=== PATIENT | male | born 1950 | race Caucasian/White ===

== ENCOUNTER → 2016-09-12 12:40 | Day surgery (SDC) | payer MEDICARE ==
[~2016-09-12 12:40] MED LIST: Buffered Lidocaine 1% SYRIN* 3 ML/SYR SYRINGE INTRADERM ONE; Bupivacaine 0.5% W/EPI SDV* 30 ML VIAL ONE; Dexamethasone IV* 4 MG/ML 1 ML (4 MG) ONE; Flumazenil* 0.1 MG/ML 5 ML MDV ONE; Glycopyrrolate IV* 0.2 MG/ML 1 ML VIAL ONE; HYDROcodone/ACETAMIN 5-325 MG* 1 TAB PO PRN; Lidocaine 1% INJ* 10 MG/ML 30 ML SDV ONE; Midazolam* 1 MG/ML 5 ML VIAL (5 MG) ONE; Neostigmine Methylsulfate* 2 MG/2 ML SYRINGE ONE; Ondansetron INJ* 2 MG/ML VIAL IV PRN; Phenylephrine IV* 40 MCG/ML 10 ML SYRINGE ONE; Propofol* 10 MG/ML 20 ML BTL IV PUSH ONE; ceFAZolin 2 GM PREMIX(*) 2 GM/50 ML BAG IVPB ONE; fentaNYL* 50 MCG/ML 2 ML VIAL (100 MCG VIAL) ONE; oxyCODONE TAB* 5 MG TAB PO PRN
--- NOTE | 2016-09-12 16:02 | SURGPN ---
Brief Operative Note - Surgery Procedures: Procedures Pre-OP Diagnoses: umbilical hernia Post-op Diagnosis: same Procedure: open umbilical hernia repair with mesh Surgeon: Ankit Asst: Judith Manzanaresthesia: REBEKAH Waters EBL: minimal IVF: 1000cc LR Specimen: none Drains: none
[2016-09-12 18:00] VITALS: BP 110/61
--- NOTE | 2016-09-20 16:03 | OP ---
DATE OF OPERATION: 09/12/16 - [facility] DATE OF : 46 SURGEON: Aryan Pham MD BUSINESS APPLICATIONS ANALYST: ILYA Finch ANESTHESIOLOGIST: Dr. Yancey. ANESTHESIA: Local MAC. PRE-OP DIAGNOSIS: Umbilical hernia. POST-OP DIAGNOSIS: Umbilical hernia. OPERATIVE PROCEDURE: Open umbilical hernia repair with mesh. ESTIMATED BLOOD LOSS: Minimal. FLUIDS: 1 L of crystalloid fluid given. SPECIMEN: None. DRAINS: None. DESCRIPTION OF PROCEDURE: The patient was identified in the preoperative area, marked, brought to the operating room, placed on the operating table in the supine position. Preoperative antibiotics were given. Sequential devices were placed on bilateral lower extremities. Gentle sedation was given. The patient' s abdomen was prepped and draped in the standard surgical fashion and a time- out was performed. Curvilinear incision was made just below the umbilicus. This was dissected down to the anterior fascia superiorly and also laterally. The umbilical stalk was then isolated around a [place] drain and both sharp and blunt dissection was utilized to free the umbilical skin from the underlying hernia defect. Hernia defect was then appreciated, was approximately 2.5 cm. The edges were cleared off. Hemostasis achieved and a Bard medium-sized tribal mesh was utilized. This was placed into the preperitoneal space that had been cleared off and allowed to unfurl. It was sutured both inferiorly and superiorly with an 0 Polysorb suture. The edges were also sutured with 0 Polysorb suture to keep the mesh intact. The arms of the mesh were then cut and the defect was reapproximated with interrupted 0 Polysorb sutures. Hemostasis was achieved. Wound was then irrigated and umbilical skin was tacked down with 2-0 Polysorb suture, and the defect was closed with 3-0 Polysorb subcuticular sutures, followed by subcutaneous 4-0 Monocryl suture. Steri-Strips and sterile dressing were applied. The patient tolerated the procedure well, was woken up in the OR, and transferred to the PACU in stable condition. CC: [facility] * [id number]/[facility] #: [id number] MTDD
== END | disposition home or self-care (01) ==
LOC: OR 12:40
PROVIDERS: ATTEND Surgery
DX: K42.9 Umbilical hernia without obstruction or gangrene (principal); I10 Essential (primary) hypertension
CPT/HCPCS: C1781; J0690; J1100; J2001; J2250; J2704; J3010

== ENCOUNTER 2017-12-09 21:07 | Emergency (ER) | payer MEDICARE, BC ==
[2017-12-09 21:16] VITALS: BP 148/83
--- NOTE | 2017-12-09 21:51 | UC ---
Beckie Oshea Emily, scribed for Go Calhoun MD on 12/09/17 at 2137 . Back Pain HPI - HPI Summary HPI Summary: This patient is a 67 year old M presenting to [facility] accompanied by with a chief complaint of back pain that began yesterday night. The patient rates the pain 8/10 in severity. Symptoms aggravated by nothing. Symptoms alleviated by nothing. Patient reports LLQ abd pain (began 12/07/2017), increased weakness in the legs, and urinary urgency. Patient denies changes in appetite, bowel symptoms, dysuria, CP, and SOB. Allergies reviewed. Medications reviewed. - History of Current Complaint Chief Complaint: UCBackPain Stated Complaint: ABDOMINAL PAIN, AND BACK PAIN Time Seen by Provider: 12/09/17 21:30 Hx Obtained From: Patient Onset/Duration: Sudden Onset, Lasting Days, Still Present Timing: Constant Severity Initially: Severe Severity Currently: Severe Pain Intensity: 8 Pain Scale Used: 0-10 Numeric Character: Aching Aggravating Factor(s): Nothing Alleviating Factor(s): Nothing Associated Signs And Symptoms: Positive: Other - Positive LLQ abd pain (began ) and urinary urgency. Negative changes in appetite, bowel symptoms, dysuria, CP, and SOB - Allergies/Home Medications Allergies/Adverse Reactions: Allergies Allergy/AdvReac Type Severity Reaction Status Date / Time Adhesive Tape [Plastic Tape] Allergy SKIN Verified 12/09/17 21:18 REACTION SCOPE Allergy MOUTH SORES Uncoded 12/09/17 21:18 Home Medications: Home Medications Finasteride 12/09/17 [History] PMH/Surg Hx/FS Hx/Imm Hx Previously Healthy: No Cardiovascular History: Hypertension GI/ History: Other Other GI/ History: Negative kidney stones - Surgical History Surgical History: Yes Surgery Procedure, Year, and Place: [place] [facility] [place] [facility] [place] [facility] [place] [facility] [place] - Family History Known Family History: Positive: Other - Diverticulitis - Social History Occupation: Retired Lives: With Family Alcohol Use: None Substance Use Type: None Substance Use Comment - Amount & Last Used: was 6 cups coffee per day, down to 2 -3 now Smoking Status (MU): Former Smoker Type: Pipe Amount Used/How Often: occas pipe - 40 years ago Review of Systems Respiratory: Other - Negative SOB Cardiovascular: Other - Negative CP Gastrointestinal: Abdominal Pain, Other - Negative changes in appetie and bowel symptoms Genitourinary: Urgency, Other - Negative dysuria Musculoskeletal: Other: - Positive back pain Neurological: Weakness Is Patient Immunocompromised?: Yes All Other Systems Reviewed And Are Negative: Yes Physical Exam - Summary Physical Exam Summary: General: well-appearing, mild pain distress Skin: warm, color reflects adequate perfusion, dry Head: normal Eyes: EOMI, FLAVIO ENT: normal Neck: supple, nontender Respiratory: CTA, breath sounds present Cardiovascular: RRR Abdomen: soft, tender LLQ, tender to palpation in low back bilaterally Bowel: present Musculoskeletal: bilateral pedal edema, strength/ROM intact Neurological: sensory/motor intact, A&O x3 Psychological: affect/mood appropriate Triage Information Reviewed: Yes Vital Signs: Initial Vital Signs Temp 98.7 F 12/09/17 21:11 Pulse 80 12/09/17 21:11 Resp 16 12/09/17 21:11 BP 148/83 12/09/17 21:11 Pulse Ox 96 12/09/17 21:11 Vital Signs Reviewed: Yes Back Pain Course/Dx - Course Course Of Treatment: DISCUSSED NEED FOR IMMEDIATE EVALUATION IN THE EMERGENCY DEPARTMENT. PATIENT DECLINED AMBULANCE. - Differential Dx/Diagnosis Provider Diagnoses: LLQ ABDOMINAL PAIN. LOW BACK PAIN. B/L LEG WEAKNESS Discharge - Sign-Out/Discharge Documenting (check all that apply): Discharge/Admit/Transfer - Discharge Plan Condition: Stable Disposition: HOME Patient Education Materials: Acute Low Back Pain (ED), Weakness (ED), Abdominal Pain (ED) Referrals: Celina Marie MD [Primary Care Provider] - Additional Instructions: GO DIRECTLY TO THE EMERGENCY DEPARTMENT FOR FURTHER EVALUATION OF YOUR ABDOMINAL AND BACK PAIN AND LEG WEAKNESS. - Billing Disposition and Condition Condition: STABLE Disposition: Home The documentation as recorded by the Beckie zimmerman Emily accurately reflects the service I personally performed and the decisions made by me, Go Calhoun MD.
== END 2017-12-09 21:50 | disposition home or self-care (01) ==
LOC: UCEAST 21:07
DX: R10.32 Left lower quadrant pain (principal); M54.5 Low back pain; M62.81 Muscle weakness (generalized); I10 Essential (primary) hypertension; Z87.891 Personal history of nicotine dependence; Z91.09 Other allergy status, other than to drugs and biological substances
CPT/HCPCS: 99212; G0463

== ENCOUNTER 2017-12-09 22:02 | Inpatient (IN) | payer MEDICARE, BC ==
[2017-12-09] MEDS ORDERED: Ketorolac INJ* 30 MG/ML 1 ML VIAL IV PUSH ONE (22:33)
[2017-12-09] MEDS ORDERED: Morphine VIAL* 4 MG/ML VIAL (1 ml vial) IV ONE (22:34)
[2017-12-09] MEDS ORDERED: LORazepam INJ* 2 MG/ML 1 ML VIAL IV PUSH ONE (22:34)
[2017-12-09 23:09] LABS: Urine Appearance Clear; Urine Blood Negative (Negative); Urine Color Yellow; Urine Ketones Negative (Negative); Urine Protein Negative (Negative); Urine Specific Gravity 1.012 (1.010-1.030); Urine Urobilinogen Negative (Negative)
[2017-12-09 23:14] LABS: ABS Basophils 0.1 10^3/ul (0-0.2); ABS Eosinophils 0.3 10^3/ul (0-0.6); ABS Lymphocytes 1.1 10^3/ul (1.0-4.8); ABS Monocytes 0.7 10^3/ul (0-0.8); ABS Neutrophils 4.3 10^3/ul (1.5-7.7); ABS Nucleated RBC 0 10^3/ul; Eosinophil % 4.5 % (0-6); Hematocrit 36 % (42-52); Hemoglobin 12.3 g/dl (14.0-18.0); Lymphocyte % 17.4 % (25-47); Mean Corpuscular HGB Conc 34 g/dl (31-36); Mean Corpuscular Hemoglobin 32 pg (27-31); Mean Corpuscular Volume 93 fL (80-94); Mean Platelet Volume 10.1 um3 (7.4-10.4); Nucleated Red Blood Cells % 0.1; Platelet Count 173 10^3/ul (150-450); Red Blood Count 3.87 10^6/ul (4.00-5.40); Red Cell Distribution Width 14 % (10.5-15); White Blood Count 6.5 10^3/ul (3.5-10.8)
[2017-12-09 23:23] LABS: INR 0.94 (0.77-1.02)
[2017-12-09 23:30] LABS: EGFR Non-African American 56.7 (>60)
[2017-12-10] MEDS ORDERED: Dexamethasone IV* 4 MG/ML 1 ML (4 MG) IV SLOW PU ONE (00:08)
[2017-12-10] MEDS ORDERED: Acetaminophen TAB* 325 MG PO PRN (03:24)
[2017-12-10] MEDS ORDERED: Ondansetron INJ* 2 MG/ML VIAL IV PRN (03:24)
[2017-12-10] MEDS ORDERED: Aspirin EC TAB* 325 MG PO ONE (03:30)
--- NOTE | 2017-12-10 03:30 | ED ---
Marquez Oshea Jade, scribed for Maria Ines Carlson MD on 12/09/17 at 2235 . Back Pain - HPI Summary HPI Summary: Pt is a 67 y/o male sent [place] [facility] [place] who c/o flank pain. He states he started to have LLQ pain 2 days ago, which today moved to his left flank and became worse. The pain is rated an 8/10 in severity, and radiates to his left leg. Pt states it hurts to walk, and has not been able to walk normally and now walks staggered. He denies any injury prior to the pain. As per , the pt can barely move and has been sleeping more than usual. She also states his abdomen is normally distended. Pt states his legs have been numb for a few weeks, and saw his doctor for this symptom. He denies any urinary symptoms, and had a normal BM this morning. Pt took Oxycodone [employer]. - History of Current Complaint Chief Complaint: EDFlankPain Stated Complaint: LOWER BACK PAIN Time Seen by Provider: 12/09/17 22:13 Hx Obtained From: Patient, Family/Admitting Interviewer - Onset/Duration: Gradual Onset, Lasting Days - 2, Worse Since Timing: Constant Back Pain Location: Is Discrete @ - Left flank, Radiates To - left leg Severity Currently: Severe Pain Intensity: 8 Pain Scale Used: 0-10 Numeric Aggravating Symptom(s): Walking Alleviating Symptom(s): Nothing Associated Signs And Symptoms: Positive: Numbness - Legs, Abdominal Pain - LLQ, Flank Pain - Left. Negative: Bladder Incontinence, Bowel Incontinence - Allergies/Home Medications Allergies/Adverse Reactions: Allergies Allergy/AdvReac Type Severity Reaction Status Date / Time Adhesive Tape [Plastic Tape] AdvReac SKIN Verified 12/09/17 22:09 REACTION SCOPE AdvReac MOUTH SORES Uncoded 12/09/17 22:09 Home Medications: Home Medications Finasteride [Proscar] 5 mg PO DAILY 12/09/17 [History Confirmed 12/09/17] Multivitamins/Minerals TAB* [Theragran/minerals TAB*] 1 tab PO DAILY 12/09/17 [ History Confirmed 12/09/17] PMH/Surg Hx/FS Hx/Imm Hx Cardiovascular History: Reports: Hx Hypertension GI History: Reports: Hx Gastroesophageal Reflux Disease - controlled with med, Other GI Disorders - Hernia History: Reports: Other Problems/Disorders - enlarged prostate Musculoskeletal History: Reports: Other Musculoskeletal History - bilateral hip/ kNee pain - hasn't seen a md Sensory History: Reports: Hx Cataracts - right eye only Denies: Hx Contacts or Glasses Opthamlomology History: Reports: Hx Cataracts - right eye only Denies: Hx Contacts or Glasses - Surgical History Surgery Procedure, Year, and Place: right [place] surgery [place], [facility] [place]. [place] retina - 2014, [place]. [place] surgery, 2006 - [facility] [place]. [place] inguinal [place] repair , 2002 - [facility] [place], [place] [facility] [place] Hx Anesthesia Reactions: No Infectious Disease History: No Infectious Disease History: Denies: Traveled Outside the [place] in Last 30 Days - Family History Known Family History: Positive: Other - Diverticulitis - Social History Alcohol Use: None Substance Use Type: Reports: None Substance Use Comment - Amount & Last Used: was 6 cups coffee per day, down to 2 -3 now Smoking Status (MU): Former Smoker Type: Pipe Amount Used/How Often: occas pipe - 40 years ago Review of Systems Positive: Abdominal Pain - LLQ Positive: flank pain - Left. Negative: dysuria, frequency, hematuria, urgency Positive: Numbness - Leg All Other Systems Reviewed And Are Negative: Yes Physical Exam - Summary Physical Exam Summary: VITAL SIGNS: Reviewed. GENERAL: Patient is a well-developed and nourished MALE who is lying comfortable in the stretcher. Patient is not in any acute respiratory distress. Staggering unsteady gait. HEAD AND FACE: No signs of trauma. No ecchymosis, hematomas or skull depressions. No sinus tenderness. EYES: PERRLA, EOMI x 2, No injected conjunctiva, no nystagmus. EARS: Hearing grossly intact. Ear canals and tympanic membranes are within normal limits. MOUTH: Oropharynx within normal limits. NECK: Supple, trachea is midline, no adenopathy, no JVD, no carotid bruit, no c- spine tenderness, neck with full ROM. CHEST: Symmetric, no tenderness at palpation LUNGS: Clear to auscultation bilaterally. No wheezing or crackles. CVS: Regular rate and rhythm, S1 and S2 present, no murmurs or gallops appreciated. ABDOMEN: Soft, non-tender. No rebound no guarding, and no masses palpated. Bowel sounds are hypoactive. Distention. Tenderness over LS spine. EXTREMITIES: FROM in all major joints, no edema, no cyanosis or clubbing. NEURO: Alert and oriented x 3. No acute neurological deficits. Speech is normal and follows commands. SKIN: Dry and warm : PVR is 0 Triage Information Reviewed: Yes Vital Signs On Initial Exam: Initial Vitals Temp Pulse Resp BP Pulse Ox 98.4 F 87 18 160/74 96 12/09/17 22:05 12/09/17 22:05 12/09/17 22:05 12/09/17 22:05 12/09/17 22:05 Vital Signs Reviewed: Yes Diagnostics - Vital Signs Vital Signs Temp Pulse Resp BP Pulse Ox 12/09/17 22:05 98.4 F 87 18 160/74 96 - Laboratory Result Diagrams: 12/09/17 22:59 12/09/17 22:59 Lab Statement: Any lab studies that have been ordered have been reviewed, and results considered in the medical decision making process. - CT Lumbar Spine CT CT Interpretation: Positive (See Comments) - 11:44 Small to moderate sized L3/4 disc bulge without significant mass effect. Mild bilateral neural foraminal narrowing L4/5 secondary to facet joitn arthrosis and geometric distortion from a degenerative retrolisthesis. 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 ED physician has reviewed this imaging report. CT Interpretation Completed By: Radiologist Brain CT CT Interpretation: No Acute Changes - 12:50 No evidence of acute pathology. ED physician has reviewed this imaging report. CT Interpretation Completed By: Radiologist Re-Evaluation - Re-Evaluation First Eval Re-Evaluation Time: 01:00 Comment: Tried to walk patient. He still had unsteady gait, almost falling. Second Eval Re-Evaluation Time: 02:00 Comment: Discussed results with pt's . Back Pain Course/Dx - Course Course Of Treatment: Pt is a 67 y/o male c/o LLQ pain and left flank pain radiating to his left leg for 2 days. Pt states it hurts to walk, and has been walking staggered. He denies any injury prior to the pain. Pt states his legs have been numb for a few weeks. A physical exam revealed staggering unsteady gait, bowel sounds are hypoactive, distention, tenderness over LS spine, and PVR is 0. A lumbar spine CT revealed Small to moderate sized L3/4 disc bulge without significant mass effect. Mild bilateral neural foraminal narrowing L4/5 secondary to facet joitn arthrosis and geometric distortion from a degenerative retrolisthesis. 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 A brain CT revealed no pathology. At 1:00, the pt still had unsteady gait, almost falling over. At 1:50 Dr. Marie accepts the pt for admission. Final dx are unsteady gait and back pain. Pt is agreeable with this plan. - Diagnoses Provider Diagnoses: Unsteady gait, Back pain - Provider Notifications Discussed Care Of Patient With: Beny Marie Time Discussed With Above Provider: 01:50 Instructed by Provider To: Admit As Inpatient - Dr. Marie accepts pt for admission for unsteady gait. Discharge - Sign-Out/Discharge Documenting (check all that apply): Discharge/Admit/Transfer - Admit, Sign-Out Patient Signing out patient TO: Beny Marie - Discharge Plan Condition: Stable Disposition: ADMITTED TO [facility] Referrals: Celina Marie MD [Primary Care Provider] - The documentation as recorded by the Marquez zimmerman Jade accurately reflects the service I personally performed and the decisions made by Aldo duenas Abdul, MD.
[2017-12-10] MEDS ORDERED: oxyCODONE TAB* 5 MG TAB PO PRN (03:31)
--- NOTE | 2017-12-10 05:58 | HP ---
CC: Celina Marie MD* ADMISSION HISTORY AND PHYSICAL: DATE OF ADMISSION: 12/09/17 PRIMARY CARE PROVIDER: Celina Marie MD HEALTHCARE PROXY: His . CODE STATUS: Full. SOURCE OF INFORMATION: History obtained from interview with the patient and his . RELIABILITY: Fair. The patient is a relatively poor historian when it comes to recalling the dates. CHIEF COMPLAINT: Difficulty walking and lower back pain. HISTORY OF PRESENT ILLNESS: This is a 67-year-old man with past medical history of hypertension. He has been in his usual state of health for approximately 3 days prior. He drove his grandchildren to the park at [place] and when he got out of the car, he felt like his legs were rubber and he could not control them. He was out for most of the day; however, he notes that because of the difficulty walking, he stumbled between different benches and sat most of the day and returned to the car and remained in the car. He notes that he was tripping over his feet and could not control his legs but did not note any pain at that time. The next day, he noticed some pain in his left lower belly that is described as burning, but no nausea or vomiting. The following day, again he went out to an event; however, after getting there struggled with walking again with "staggering, holding on to things" and so he and his left and returned home. Today, because of continued ataxia and the development of lower back pain, they decided to seek care in the emergency room. He notes lower back pain that is described as burning and "hurts." He has had back pain in the past, but he notes it usually resolves on its own. He does not have chronic lower back pain and this is new and unusual for him. He has not had any urinary incontinence or urinary retention; however, did have 1 episode of fecal incontinence where he had eaten something greasy and could not make it to the bathroom in time. He is unable to tell me if this episode of fecal incontinence preceded any of his ataxia. He denies any cough or sore throat, nausea, vomiting, lightheadedness, chest pain, shortness of breath. He had no blurry vision or diplopia, headache, fevers, chills, or sick contacts. He has had no injuries to his back or other regions. Denies any paresthesias particularly in his lower extremities, although does feel like his legs has somebody squeezing on them. PAST MEDICAL HISTORY: Includes hypertension, GERD, umbilical hernia repair with mesh, prostatectomy, bilateral inguinal hernia, cataract surgery, retinal detachment, right hand surgery, and tonsillectomy at age 4. MEDICATIONS: Per recall, no list available. 1. Amlodipine 10. 2. Omeprazole 20 daily. ALLERGIES: ADHESIVE TAPE. SOCIAL HISTORY: Remote tobacco with a pipe. 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 He has about 1 alcoholic drink per month. Lives with his . FAMILY HISTORY: His mother had a CVA. His brother had hypertension, diabetes. REVIEW OF SYSTEMS: As per HPI. Otherwise, all other systems negative. PHYSICAL EXAMINATION GENERAL: A 67-year-old gentleman, interactive, pleasant, no apparent distress. VITALS: In the emergency room, 144/74, heart rate 80, respiratory rate is 16, T - max in the emergency room is 98.4, he is 98% on room air. HEENT: His oropharynx is clear. He has moist mucous membranes. Sclerae are anicteric. NECK: He has no cervical or supraclavicular lymphadenopathy. LUNGS: Clear to auscultation. HEART: He has regular rate and rhythm. ABDOMEN: His abdomen seems distended and he has some tenderness in the left lower quadrant without rebound or guarding. He has no edema. BACK: Symmetric. Tenderness to palpation around L5-S1. EXTREMITIES: Warm and well perfused. NEUROLOGIC: He is alert and oriented x3. His cranial nerves II through XII are intact, but he does have some upward rotary nystagmus. His sensation in upper and lower extremities are intact and equal to light touch and pinprick. No vibration was applied. He has 5/5 strength throughout. He is able to hold bilateral legs up for 10 full seconds. No apparent drift. Slow, but equal rapid alternating movements. Visual lozoya are intact to confrontation. Potentially some neglect when testing his right eye upper lateral quadrant; however, was able to perform better on several attempts. His reflexes are hyper at his patellas. Unable to elicit ankle jerks. On standing, the patient immediately fall straight backwards and on to the stretcher, unable to stand unassisted or test his gait. He has no apparent anxiety, agitation, or depression. LABORATORY DATA: His labs are reviewed, largely normal. Hemoglobin 12.3, MCV is 93. INR is 0.9. His creatinine is 0.16. CRP is 11.5. His urine is bland. IMAGING: Data reviewed. Brain CT overnight read is without abnormality and then lumbar spine MRI similarly overnight read without abnormality. Official reads are pending. ASSESSMENT AND PLAN: This is a 67-year-old man, limited medical history including hypertension and gastroesophageal reflux disease, presented to the hospital with sudden onset ataxia and new onset lower back pain. 1. Ataxia, sudden onset, developed en route to driving to a park and has been stable. It is unclear if this is anything to do with his lower back pain. He has no lower extremity paresthesias, weakness and his reflexes are hyperdynamic. In addition, he has upward rotary nystagmus. Checking an MRI of the brain to evaluate for brain of stroke. If this is negative, we would pursue additional imaging of the lumbosacral region. His pain is particularly tender around L5-S1. Additionally, add on B12. Give the patient aspirin 325 tonight. Add on hemoglobin A1c. Place on telemetry to continue to monitor, evaluate for stroke workup. Remainder of stroke workup include transthoracic echocardiogram and evaluation of his carotids pending results of MRI as well as Neurology consultation. I did discuss with Dr. Gutierrez overnight and place consultation. 2. Lower back pain. Certainly, concerning given location as well as new onset of symptoms. Treat pain symptomatically overnight. Further evaluation depending on MRI tomorrow. 3. Abdominal pain. Tender in the left lower quadrant, not associated with other signs including nausea, vomiting, constipation, diarrhea. No evidence of infection. We will check plain film. Potentially constipation is contributing. 4. Hypertension. Continue home medications. 5. Gastroesophageal reflux disease. Continue omeprazole. 6. DVT prophylaxis. SCDs until stroke ruled out. [id number]/[facility] #: [id number] [facility]
--- NOTE | 2017-12-10 07:25 | RAD ---
INDICATION: Low back pain with radiculopathy. COMPARISON: Comparison is made with a prior MRI of the lumbar spine from July 19, 2011 and a prior x-ray study of the lumbar spine from January 05, 2013. TECHNIQUE: Contiguous axial sections were obtained beginning above the L1 vertebra and continuing through the L5-S1 disc space. Images were reconstructed in the sagittal and coronal planes. FINDINGS: There is a mild lumbar scoliosis convex toward the left side. There is mild grade 1 retrolisthesis at the L4-L5 level and mild grade 1 anterolisthesis at the L5-S1 level. There is unilateral spondylolysis on the left side at the L5 level. No other fractures are seen. At the T12-L1 level there is a mild broad-based disc bulge. No significant spinal canal or neural foraminal narrowing is seen. At the L1-L2 level there is no evidence for spinal canal or neural foraminal narrowing. At the L2-L3 level there is a minimal broad-based disc bulge. No significant spinal canal or neural foraminal narrowing is seen. At the L3-L4 level there is a gece-hq-kwzwtoac broad-based disc bulge and mild hypertrophic changes within the facet joints. There is mild spinal canal narrowing and mild bilateral neural foraminal narrowing. At the L4-L5 level there is a minimal broad-based disc bulge. There are mild hypertrophic changes within the facet joints. No significant spinal canal or neural foraminal narrowing is seen. The L5-S1 level there is a minimal broad-based disc bulge and mild hypertrophic changes within the facet joints. No significant spinal canal or neural foraminal narrowing is seen. Incidental note is made of bilateral peripelvic renal cysts. IMPRESSION: 1. MILD GRADE 1 ANTERIOR SPONDYLOLISTHESIS AT THE L5-S1 LEVEL AND LEFT-SIDED UNILATERAL SPONDYLOLYSIS AT THE L5 LEVEL. 2. MILD DEGENERATIVE DISC DISEASE AND FACET OSTEOARTHRITIS DESCRIBED WITH CHANGES MOST PROMINENT AT THE L3-L4 LEVEL. AT THAT LEVEL THERE IS MILD SPINAL CANAL NARROWING AND MILD BILATERAL NEURAL FORAMINAL NARROWING.
--- NOTE | 2017-12-10 07:32 | RAD ---
INDICATION: Left lower quadrant pain COMPARISON: None TECHNIQUE: A single view of the abdomen is submitted. FINDINGS: Bones: There are no acute bony findings. Soft tissues: The soft tissues appear normal. The psoas margins are sharp. Bowel gas pattern: There is a large amount retained stool. Calcifications: There are no abnormal calcifications. Other: None IMPRESSION: RETAINED STOOL.
--- NOTE | 2017-12-10 07:36 | RAD ---
INDICATION: CVA. COMPARISON: Comparison is made with a prior CT of the brain from January 04, 2013. TECHNIQUE: Contiguous axial sections of the brain were obtained from the skull base to the vertex without contrast. FINDINGS: The ventricles, cisterns and sulci are enlarged consistent with diffuse atrophy. There are multiple focal areas of decreased density in the subcortical and periventricular white matter suggestive of moderate chronic small vessel ischemic changes. No mass effect is seen. There is no evidence for hemorrhage. There is dolichoectasia of the basilar artery. No significant focal osseous abnormality is seen. The visualized portion of the paranasal sinuses and mastoid air cells appear clear. IMPRESSION: 1. NO EVIDENCE FOR GROSS ACUTE INFARCT, MASS EFFECT OR HEMORRHAGE. 2. ATROPHY AND FINDINGS MOST CONSISTENT WITH CHRONIC SMALL VESSEL SCHEMA CHANGES.
[2017-12-10] MEDS ORDERED: Magnesium Hydroxide LIQ* 30 ML UDC PO ONE (08:33)
[2017-12-10] MEDS: Docusate CAP* 100 MG PO SCH ×2 (09:41→21:09)
[2017-12-10] MEDS: Lidocaine PATCH 5%* 1 PATCH TRANSDERM SCH (09:41)
[2017-12-10] MEDS: Multivitamins/Minerals TAB PO SCH (09:41)
[2017-12-10] MEDS: Finasteride TAB* 5 MG PO SCH (09:41)
[2017-12-10] MEDS: amLODIPine TAB* 5 MG PO SCH (09:42)
[2017-12-10] MEDS: Omeprazole CAP* 20 MG PO SCH (09:48)
--- NOTE | 2017-12-10 10:19 | RAD ---
HISTORY: MRI clearance. COMPARISON: None. FINDINGS: Frontal and lateral views of the orbits. There is no radiopaque foreign body attributable to the orbits. The orbital rims are intact. The sinuses are clear. The zygomatic arches are normal. IMPRESSION: No radiopaque foreign body attributable to the orbits.
--- NOTE | 2017-12-10 11:00 | RAD ---
HISTORY: new ataxia, attn to brainstem cva COMPARISONS: January 05, 2013 TECHNIQUE: The following sequences were obtained of the head: Sagittal T1-weighted images, axial T2-weighted images, axial FLAIR images, axial susceptibility weighted images, axial T1-weighted images. Additionally, axial diffusion-weighted images were obtained with calculated apparent diffusion coefficients. FINDINGS: The study is limited by patient motion artifact. HEMORRHAGE/INFARCT: There is a small focus of restricted diffusion within the right posterior frontal pollack radiata on axial image 19. Elsewhere, there is no hemorrhage or acute infarct. MASSES/SHIFT: There is no mass or shift. EXTRA-AXIAL SPACES/MENINGES: There are no extra-axial fluid collections. SULCI AND VENTRICLES: There is diffuse and proportional enlargement of the sulci and ventricles. CEREBRUM: There is multifocal elevated T2/FLAIR signal in the periventricular and subcortical white matter. BRAINSTEM: There is elevated T2/FLAIR signal within the pontine white matter. CEREBELLUM: There are no focal parenchymal abnormalities. The cerebellar tonsils are normal in size and position. SELLA: The sella is normal. PINEAL: The pineal region is clear. CP ANGLE/TEMPORAL BONES: The labyrinthine structures are grossly normal. VESSELS: Normal flow-voids are noted within the visualized vertebral vasculature. DIFFUSION ABNORMALITIES: As noted above, there is a small focus of acute diffusion within the right posterior frontal pollack radiata measuring 0.5 cm. PARANASAL SINUSES/MASTOIDS: There are mucus retention cysts within the maxillary sinuses bilaterally. ORBITS: The orbits are unremarkable. BONES AND SOFT TISSUE: No bone or soft tissue abnormalities are noted. OTHER: None IMPRESSION: 1. SMALL FOCUS OF RESTRICTED DIFFUSION WITHIN THE RIGHT POSTERIOR FRONTAL POLLACK RADIATA CONSISTENT WITH SUBACUTE NONHEMORRHAGIC INFARCT. 2. DIFFUSE INVOLUTIONAL CHANGE WITH ELEVATED T2/FLAIR SIGNAL IN THE PERIVENTRICULAR, SUBCORTICAL, AND PONTINE WHITE MATTER, MOST SUGGESTIVE OF CHRONIC SMALL VESSEL ISCHEMIC CHANGE.
[2017-12-10] MEDS ORDERED: Iodixanol* (CONTRAST) 320 MG/ML 100 ML SDV IV ONE (12:15)
--- NOTE | 2017-12-10 13:10 | RAD ---
HISTORY: r/o stenosis, CVA COMPARISONS: MRI of the brain dated December 10, 2017 TECHNIQUE: Multiple contiguous axial CT scans were obtained of the head and neck after the administration of nonionic intravenous contrast timed to the systemic arterial phase of contrast enhancement. Coronal and sagittal multiplanar reformations are submitted for review. Multiple 3-D maximum intensity projection reconstructions are also submitted for review. FINDINGS: CTA NECK: AORTIC ARCH: There is a normal three-vessel branching pattern of the aortic arch. There is no ostial or proximal stenosis of the cephalic great vessels. RIGHT VERTEBRAL ARTERY: The right vertebral artery is patent along its course, without stenosis. LEFT VERTEBRAL ARTERY: The left vertebral artery is patent along its course, without stenosis. DOMINANCE: The left vertebral artery is dominant. RIGHT COMMON CAROTID ARTERY: The right common carotid artery is patent. The right carotid bifurcation occurs at C3-C4 RIGHT INTERNAL CAROTID ARTERY: There is no right internal carotid artery stenosis by NASCET criteria. The right internal carotid artery is tortuous. RIGHT EXTERNAL CAROTID ARTERY: The right external carotid artery is unremarkable. LEFT COMMON CAROTID ARTERY: The left common carotid artery is patent. The left carotid bifurcation occurs at C2-C3 LEFT INTERNAL CAROTID ARTERY: There is no left internal carotid artery stenosis by NASCET criteria. The left internal carotid artery is tortuous. LEFT EXTERNAL CAROTID ARTERY: The left external carotid artery is unremarkable. VENOUS CIRCULATION: The venous system is unremarkable. SALIVARY GLANDS: The parotid glands, submandibular glands, sublingual glands are normal. NASAL CAVITY/NASOPHARYNX: The nasal cavity and nasopharynx are normal. ORAL CAVITY/OROPHARYNX: The oral cavity is obscured by streak artifact from dental amalgam. The visualized oral cavity and oropharynx are unremarkable. LARYNGEAL APPARATUS/HYPOPHARYNX: The laryngeal apparatus and hypopharynx are normal. UPPER AIRWAY/UPPER ESOPHAGUS: The visualized upper airway and esophagus are normal. LUNG APICES: The lung apices are clear. THYROID GLAND: The thyroid gland is normal. LYMPH NODES: There is no lymphadenopathy by size criteria. BONES AND SOFT TISSUES: No bone or soft tissue abnormalities are noted. CTA HEAD: INTRACRANIAL CIRCULATION: There is no aneurysm, vascular malformation, occlusion, or stenosis of the visualized intracranial circulation. The anterior communicating artery complex is clear. Bilateral posterior communicating arteries are identified. VENOUS CIRCULATION: The venous system is unremarkable. PERFUSION: There is no obvious parenchymal perfusion deficit. HEMORRHAGE/INFARCT: There is no hemorrhage or acute infarct. MASSES/SHIFT: There is no mass or shift. EXTRA-AXIAL SPACES: There are no extra-axial fluid collections. SULCI AND VENTRICLES: The sulci and ventricles are normal in size and position for the patient's stated age. CEREBRUM: There are no focal parenchymal abnormalities. BRAINSTEM: There are no focal parenchymal abnormalities. CEREBELLUM: There are no focal parenchymal abnormalities. PARANASAL SINUSES: There are mucus retention cysts of the maxillary sinuses bilaterally. ORBITS: The orbits are unremarkable. BONES AND SOFT TISSUE: No bone or soft tissue abnormalities are noted. OTHER: There is no abnormal enhancement. IMPRESSION: 1. NO ANEURYSM, VASCULAR MALFORMATION, OCCLUSION, OR STENOSIS OF THE VISUALIZED INTRACRANIAL CIRCULATION.. 2. NO INTERNAL CAROTID ARTERY STENOSIS BY NASCET CRITERIA. CPT II Codes: 3100F
[2017-12-10] MEDS: Aspirin EC TAB* 81 MG TAB.EC PO SCH (13:50)
--- NOTE | 2017-12-10 15:08 | CONS ---
CC: Dr. Celina Marie NEUROLOGY CONSULTATION: DATE OF CONSULT: 12/10/17. LOCATION: He is an inpatient, in room 451. REFERRING PHYSICIAN: Dr. Marie. CHIEF COMPLAINT: Difficulty walking. HISTORY OF PRESENT ILLNESS: Anton Aquino is a 67-year-old man, who presented to the hospital yesterday because of progressive difficulty walking. In speaking with his and daughter, who are present, it has been gradually progressive process for at least many weeks if not quite a few months. He has been getting stiffer and stiffer, and more unsteady on his feet. He trips and has not hit the ground , but he has to hold onto things. He notes his legs are very stiff. He occasionally gets some numbn ess in his feet. He does not feel any problems of numbness, weakness or coordination of his upper ex tremities. He feels that both of his legs are weak. There is no history of head or neck trauma, or neck pain, but he does have back pain. He has noticed any difficulty with speech or swallowing, and his has not noticed any change in his voice. He denies problems with vision other than chronic ones. No double vision. He was evaluated by Dr. Marie in the emergency room and noted to have some nystagmus. He was noted to be unstable on his feet and tended to fall backwards. PAST MEDICAL HISTORY: Notable for hypertension and gastroesophageal reflux. He states he takes his antihypertensive medication regularly. He has a history of retinal detachment and cataract surgeries . He has had a prostatectomy and inguinal hernia repairs. MEDICATIONS: At home consist of: 1. Amlodipine 10 mg p.o. daily. 2. Omeprazole 20 mg p.o. daily. Medications received here in the hospital include: 1. Colace 100 mg p.o. b.i.d. 2. Proscar 5 mg p.o. daily. 3. Ondansetron 4 mg IV q. 4 hours as needed for nausea. 4. Oxycodone 5 mg p.o. q. 6 hours p.r.n. back pain. ALLERGIES: He is allergic to ADHESIVE TAPE. FAMILY HISTORY: Noncontributory. REVIEW OF SYSTEMS: Notable for one fall off of the ladder quite a few years ago. He was probably kno cked out as he came to on the ground. He was alone, so he is not sure how long he was out for. That is the only history of head injury. There is no history of prior strokes or seizures. There is no history of diabetes or heart disease. There has been no change in weight. There had been no recent fevers or infections. The rest of the 14-point review of systems is unremarkable. PHYSICAL EXAM: He is well hydrated and has central obesity. Vital Signs: Temperature 98.4, blood pr essure most recently 133/73, heart rate is in the 80s and regular. Respiratory rate is 16 and oxygen saturations 96% on room air. Heart is in a regular rate and rhythm without murmurs. Carotid pulses are present. There are no cervical or supraclavicular bruits. Lungs are clear bilaterally. Neurological Exam: Pupils react equally from 3.5 to 2.5 mm. Eye movements are choppy, but I do not see any nystagmus. There is no ophthalmoplegia or ptosis. Funduscopic exam is unremarkable bilateral ly. Visual lozoya are full to confrontation. Facial musculature is intact and symmetric, and facial sensation to pin and light touch is also intact and symmetric. Palate and tongue are normal. Speech is soft, but clear. Hearing is intact. Neck strength is intact. Motor exam reveals spasticity in both legs and to a lesser extent in the arms. He has good strength proximally and distally in upper and lower extremities, however. Sensory exam is intact to vibration, light touch, proprioception, and pin discrimination in upper and lower extremities proximally and distally. There is no rest tremor. [id number]-mz-[id number] maneuvers are s low, but accurate. Finger taps are normal in the hands. [id number] maneuver is limited by limited range of motion. Gait is stiff-legged and somewhat spastic. He is able to ambulate independently. Reflexes are diffusely brisk in the upper extremities including the biceps and finger flexors. Knee jerks are very brisk, but there are no crossed adductor responses. Ankle reflexes are grade 2, but I did get a couple of beats of clonus at the right ankle. Plantar responses are flexor. He is alert and oriented, and a reasonably good historian. Memory seems fair and language is fluent. He has adequate attention, concentration, and fund of knowledge. DIAGNOSTIC STUDIES/LAB DATA: Laboratory data includes an MRI of the brain done earlier today. I rev iewed the images and there is a small subacute infarction in the right deep white matter. There was also reasonably extensive chronic ischemic changes in the deep white matter and also in the lissy. He has a very tortious appearing basilar artery. Brain CT interpreted as showing hypodensities consist ent with chronic ischemic changes. CT of the lumbar spine interpreted showing degenerative changes i n grade 1 anterior spondylolisthesis of L5 on S1. Other laboratory data are notable for a CBC with a hemoglobin of 12.3 and otherwise unremarkable CBC. PTT and INR are normal. Chemistry profile notable for a nonfasting glucose of 156 yesterday, hemog lobin A1c 5.6%. Creatinine is 1.26. CRP mildly elevated, 11.5. Cholesterol 187, LDL 82. Vitamin B 12 level of 375. IMPRESSION AND PLAN: The impression is that of a spastic paraplegia. There was also a tiny subacute infarct in the right deep frontal white matter. His spasticity may be from subcortical chronic isch emic disease, but he needs an MR imaging of his cervical spine and possible a thoracic spine if that is negative. There is a CT angiogram of his neck and brain pending. He has a pretty tortuous looking basilar artery it is possible it is causing some brainstem compression or ischemia. He has been sta rted on aspirin therapy, which I recommended be continued and I also recommended that he would be sta rted on a high potency statin. His blood pressure is currently adequately controlled. He does not a ppear to have diabetes. He is a nonsmoker. I put in the order for the MRI of the cervical spine and we will await the CT angiogram results. I m ay add Plavix, but I would like the other studies first. I will follow him along with you. [id number]/[facility] #: [id number]
--- NOTE | 2017-12-10 15:41 | PN ---
Subjective Date of Service: 12/10/17 Interval History: Pt is rather withdrawn and appear to be slow to respond to questioning, but per family present in the room, it's pt's baseline . C/o falls and gait problems for several months, more in the past 2 days Had LLQ abd pain and lumbar back pain that resolved by today. denies constipation Objective Active Medications: Acetaminophen (Tylenol Tab*) 650 mg PO Q6H PRN PRN Reason: PAIN Amlodipine Besylate (Norvasc Tab*) 10 mg PO QAM [facility] Last Admin: 12/10/17 09:42 Dose: 10 mg Aspirin (Aspirin Ec Tab*) 81 mg PO DAILY [facility] Last Admin: 12/10/17 13:50 Dose: 81 mg Atorvastatin Calcium (Lipitor*) 80 mg PO 1700 [facility] Docusate Sodium (Colace Cap*) 100 mg PO BID [facility] Last Admin: 12/10/17 09:41 Dose: 100 mg Finasteride (Proscar Tab*) 5 mg PO DAILY [facility] Last Admin: 12/10/17 09:41 Dose: 5 mg Lidocaine (Lidoderm 5% Patch*) 1 patch TRANSDERM DAILY [facility] Last Admin: 12/10/17 09:41 Dose: 1 patch Multivitamins/Minerals (Theragran/Minerals Tab*) 1 tab PO DAILY [facility] Last Admin: 12/10/17 09:41 Dose: 1 tab Omeprazole (Prilosec Cap*) 20 mg PO QAM@0730 [facility] Last Admin: 12/10/17 09:48 Dose: 20 mg Ondansetron HCl (Zofran Inj*) 4 mg IV Q4H PRN PRN Reason: NAUSEA Oxycodone HCl (Roxycodone Tab*) 5 mg PO Q6H PRN PRN Reason: SEVERE PAIN Pharmacy Profile Note (Lidocaine Patch Remove*) 1 note N/A 2100 [facility] Vital Signs - 8 hr 12/10/17 12/10/17 08:33 11:56 Temperature 98.4 F 98.2 F Pulse Rate 83 95 Respiratory 16 16 Rate Blood Pressure 133/73 143/72 (mmHg) O2 Sat by Pulse 96 95 Oximetry Oxygen Devices in Use Now: None Appearance: 67 yo M in nAD, aAOx3, poor historian, does not remeber the president Eyes: No Scleral Icterus, PERRLA Ears/Nose/Mouth/Throat: NL Teeth, Lips, Gums, Mucous Membranes Moist Neck: NL Appearance and Movements; NL JVP, Trachea Midline Respiratory: Symmetrical Chest Expansion and Respiratory Effort, Clear to Auscultation Cardiovascular: NL Sounds; No Murmurs; No JVD, RRR Abdominal: NL Sounds; No Tenderness; No Distention Extremities: No Edema, No Clubbing, Cyanosis Skin: No Rash or Ulcers, No Nodules or Sclerosis Neurological: - - ataxia and increased spasticity in b/l LE's. finger to nose mildly dysmetric b/l Result Diagrams: 12/09/17 22:59 12/09/17 22:59 Assess/Plan/Problems-Billing Assessment:67 yo M with h/o TURP, HTN presents with ataxia - Patient Problems (1) Ischemic cerebrovascular accident (CVA) Comment: MRI positive for r posterior pollack radiata CVA Cont neurochecks and telem D/w Dr. Gutierrez ASA/Lipitor started Echo pending . CTa head an neck shows no significant stenosis. PT/OT ongoing (2) Dyslipidemia Comment: LDL 82, lipitor started (3) HTN (hypertension) Comment: controlled on Norvasc (4) Abdominal pain Comment: resolved, possibly due to constipation Abd XRay shows retained stool (5) DVT prophylaxis Comment: HSQ Status and Disposition: inpatient
--- NOTE | 2017-12-10 16:10 | ECHO ---
Patient: JOSE BRAXTON [facility] Rec#: [id number] : 1950 Date: 12/10/2017 Age: 67y Height: 152 cm / 59.8 in Weight: 74 kg / 163.1 lbs Sex: M BSA: 1.71 Room#: [facility] Admit Date#: 12/10/2017 Type: Inpatient Referring: Melia Wheeler MD Reading: Luisito Bagley MD Engineer Technician: Vicki Mercedes RDCS,RDMS CC: Celina Marie Transthoracic Echocardiogram Indication: CVA BP: 133/73 HR: 97 Rhythm: NSR Findings History: HTN Technical Comments: The study quality is good. Left Ventricle: The left ventricular chamber size is normal. Moderate concentric left ventricular hypertrophy is observed. Global left ventricular wall motion and contractility are within normal limits. There is normal left ventricular systolic function. The estimated ejection fraction is greater than 65%. There is an E to A reversal in the mitral valve flow pattern suggestive of diastolic dysfunction. Left Atrium: The left atrium is moderately dilated. Right Ventricle: The right ventricular chamber size and systolic function are within normal limits. The right ventricle wall thickness is mildly increased. Right Atrium: The right atrium is mildly dilated. A patent foramen ovale is not demonstrated with color Doppler and agitated contrast. Aortic Valve: The aortic valve is trileaflet. There is aortic annular calcification. There is mild aortic regurgitation. There is mild aortic stenosis. Mitral Valve: The mitral valve leaflets appear normal. There is a trace of mitral regurgitation. There is no evidence of mitral stenosis. Tricuspid Valve: The tricuspid valve leaflets are normal. There is trace tricuspid regurgitation. Unable to estimate the right ventricular systolic pressure. Pulmonic Valve: There is no evidence of pulmonic valve thickening. There is no evidence of pulmonic regurgitation. Pericardium: There is no significant pericardial effusion. Aorta: The aortic root appears normal. There is no dilatation of the aortic arch. Pulmonary Artery: The main pulmonary artery appears normal. Venous: The inferior vena cava appears normal in size. There is a greater than 50% respiratory change in the inferior vena cava dimension. Summary: There was not any prior study for comparison. Conclusions Moderate concentric left ventricular hypertrophy is observed. Global left ventricular wall motion and contractility are within normal limits. There is normal left ventricular systolic function. A patent foramen ovale is not demonstrated with color Doppler and agitated contrast. There is mild aortic regurgitation. There is a trace of mitral regurgitation. There is trace tricuspid regurgitation. Unable to estimate the right ventricular systolic pressure. There is no significant pericardial effusion. Measurements Name Value Normal Range RVIDd (AP) 2D 2.6 cm (0.9 - 2.6) RVDdMajor (2D) 3.4 cm (2.2 - 4.4) RAd ISD 4CH 5 cm (3.4 - 4.9) RA (A4C)W 5.1 cm (2.9 - 4.6) IVSd (2D) 1.5 cm (0.6 - 1) LVPWd (2D) 1.3 cm (0.6 - 1) LVIDd (2D) 4.4 cm (3.6 - 5.4) LVIDs (2D) 2.5 cm - LV FS (2D) 45 % (25 - 45) Aortic Annulus 2.3 cm (1.4 - 2.6) Ao root diameter (2D) 3.1 cm (2.1 - 3.5) Ascending Ao 3.2 cm (2.1 - 3.4) Aortic arch 2.4 cm (1.8 - 3.4) LA dimension (AP) 2D 4 cm (2.3 - 3.8) LAd ISD 4CH 6.1 cm (2.9 - 5.3) LA ISD 4CH W 5.2 cm (2.5 - 4.5) Name Value Normal Range LA ESV BP (A/L) index 49 ml/m2 - Name Value Normal Range MV E-wave Vmax 0.5 m/sec - MV deceleration time 100 msec - MV A-wave Vmax 0.7 m/sec - MV E:A ratio 0.7 ratio - LV septal e' Vmax 0.05 m/sec - LV lateral e' Vmax 0.05 m/sec - LV E:e' septal ratio 10 ratio - LV E:e' lateral ratio 10 ratio - Name Value Normal Range AV Vmax 2.5 m/sec - AV VTI 42.5 cm - AV peak gradient 25 mmHg - AV mean gradient 14 mmHg - LVOT diameter 2 cm - LVOT Vmax 1.4 m/sec - LVOT VTI 20 cm - LVOT peak gradient 8 mmHg - LVOT mean gradient 4 mmHg - DOI (VTI) 0.5 ratio - ERIK (continuity Vmax) 1.8 cm2 - ERIK (continuity VTI) 1.5 cm2 -
--- NOTE | 2017-12-10 16:40 | RAD ---
Indication: Unsteady gait, spasm. Image Sequences: Sagittal T1, T2, STIR, axial T2 and gradient echo images of the cervical spine were obtained. The vertebral bodies appear normal in height. Normal bone marrow signal is noted. There is syringomyelia from C6 to C7 without expansion of the spinal cord. At C2-3, there is broad-based protrusion flattening the thecal sac. Bilateral uncovertebral joint hypertrophy is noted. At C3-4, spondylitic ridge flattens the thecal sac. Broad-based protrusion is noted. Bilateral uncovertebral joint hypertrophy narrows both foramina. At C4-5, degenerative disc disease flattens the thecal sac. Bilateral uncovertebral joint hypertrophy is noted. At C5-6, spondylitic ridge flattens the thecal sac. Bilateral uncovertebral joint hypertrophy narrows both foramina. At C6-7 and C7-T1, the disc space is normal. IMPRESSION: 1. 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 2. Degenerative disc disease at multiple levels is noted. Hemangioma is noted at T1.
[2017-12-10] MEDS ORDERED: Atorvastatin* 80 MG TAB PO SCH (17:00)
[2017-12-10] MEDS ORDERED: Lidocaine Patch REMOVE* 1 NOTE MISC SCH (21:00)
[2017-12-11 07:02] LABS: EGFR Non-African American 75.8 (>60)
[2017-12-11] MEDS: amLODIPine TAB* 5 MG PO SCH (08:29)
[2017-12-11] MEDS: Docusate CAP* 100 MG PO SCH (08:29)
[2017-12-11] MEDS: Lidocaine PATCH 5%* 1 PATCH TRANSDERM SCH (08:29)
[2017-12-11] MEDS: Finasteride TAB* 5 MG PO SCH (08:29)
[2017-12-11] MEDS: Aspirin EC TAB* 81 MG TAB.EC PO SCH (08:29)
[2017-12-11] MEDS: Multivitamins/Minerals TAB PO SCH (08:29)
[2017-12-11] MEDS: Omeprazole CAP* 20 MG PO SCH (08:34)
[2017-12-11 12:27] VITALS: BP 130/62
--- NOTE | 2017-12-11 14:41 | CONS ---
NEUROLOGY FOLLOWUP NOTE: DATE OF FOLLOWUP: 12/11/17 HOSPITALIST: Dr. Wheeler. LOCATION: He is an inpatient in room 451. REASON FOR FOLLOWUP: Unsteadiness. INTERVAL HISTORY: Since yesterday, Mr. Aquino feels well. He feels reasonably steady on his feet. He has no new complaints. He is being prepared to be discharged back to home. Since yesterday, he had a number of studies reviewed. He had an MRI of the cervical spine, which revealed some degenerative disk disease and mild stenosis but no cord compression. There is, however, a small linear syrinx at about C6 down to about T1. There is no evidence of Arnold Chiari malformation, however. His brain MRI is reviewed and shows a small acute infarction in the right hemisphere as well as some chronic ischemic changes only. His transthoracic echocardiogram was unremarkable and there was no embolic source. His CT angiogram revealed some tortuosity of the vertebral basilar system, but no significant intracranial or extracranial stenosis. PHYSICAL EXAM: He has been afebrile. Blood pressure most recently 130/60, heart rate in the 70s and regular. He was not further examined. IMPRESSION AND PLAN: I explained the results of the studies including the syrinx. He does not appear to have a Chiari malformation and so maybe posttraumatic when he fell off a ladder years ago. I think he needs followup, however, with repeat imaging in about 3 months, and so I plan to see him in my office in followup. I agree with high-dose statins, aspirin therapy, and his blood pressure is under good control. I will see him in my office in a couple of months and set him up for a followup MRI scan of the cervical spine in about 3 months from this last one. [id number]/[facility] #: [id number] VISH
--- NOTE | 2017-12-11 15:05 | DS ---
CC: Dr. Gutierrez; Dr. Celina Marie DISCHARGE SUMMARY: DATE OF ADMISSION: 12/09/17. DATE OF DISCHARGE: 12/11/17. PRIMARY CARE PROVIDER: Dr. Celina Marie. NEUROLOGIST: Dr. Gutierrez. DISCHARGE DIAGNOSES: 1. 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 2. Syringomyelia. SECONDARY DIAGNOSES: 1. History of hypertension. 2. History of gastroesophageal reflux disease. 3. History of umbilical hernia repair. 4. History of TURP in the past. 5. History of cataract surgery. MEDICATIONS AT DISCHARGE: Include: 1. Aspirin 81 mg daily. 2. Norvasc 10 mg daily. 3. Proscar 5 mg daily. 4. Multivitamin 1 tablet daily. 5. Prilosec 20 mg daily. 6. Lipitor 80 mg daily. 7. Lidoderm patch 5% apply to painful area of the lumbar back for 12 hours a day. LABORATORY DATA AND STUDIES PERFORMED DURING THE HOSPITAL STAY: Included: On 12/09/17: White blood cell count of 6.5, hemoglobin of 12.3, hematocrit of 36, and platelets of 173. On 12/11/17: Sodium of 140, potassium of 4. 1, chloride 106, carbon-dioxide 30 , BUN 18, and creatinine of 0.98. Cholesterol profile showed a total cholesterol of 187, LDL of 82, HDL of 62. Vitamin B12 of 375. The patient's transthoracic echocardiogram obtained on 12/10/17 showed EF "normal." There was no PFO. There was trace tricuspid regurgitation. Cervical spine MRI obtained on 12/10/17 notes that there is a syrinx from C6-C7 and degenerative disk disease at multiple levels noted. There was hemangioma noted at T1. Lumbar spine CT obtained on 12/09/17 impression: "Mild grade 1 anterior spondylolisthesis at L5-S1 level and left-sided spondylosis at the L5 level. Mild degenerative disk disease and facet osteoarthritis as described with changes most prominent at the L3-L4 level and at that level there is a mild spinal canal narrowing and mild bilateral neural foraminal narrowing." Brain MRI obtained on 12/09/17 impression: "Small focus suggestive of diffusion within the right posterior frontal pollack radiata consistent with subacute, nonhemorrhagic infarct. Diffuse involutional change with elevated T2 flare signal in the periventricular subcortical and pontine white matter, most suggestive of chronic small vessel ischemic change." Brain CT obtained on 12/10/17 impression: "No evidence of gross acute infarct, mass effect, or hemorrhage. Atrophy and findings most consistent with chronic small vessel ischemic changes". CTA of the head and neck obtained on 12/10/17 shows no aneurysm, vascular malformation, occlusion or stenosis of the visualized intracranial circulation. No internal carotid artery stenosis. There was no carotid artery stenosis in the neck either. CONSULTATIONS DURING THE HOSPITAL STAY: Included Dr. Gutierrez from neurology. HOSPITALIZATION COURSE: Anton Aquino is a 67-year-old male with a history of hypertension and BPH, who presented to the hospital with ataxia. The patient stated that he has had troubles with unsteady gait for quite some time, but for the past 2 days prior to admission it had been drastically worsened. The patient was admitted to telemetry monitored bed and observed. His MRI showed subacute to acute CVA. Dr. Gutierrez saw the patient in consultation. Further imaging studies as documented above showed no significant abnormalities. Apart from that the patient was noted to have increased muscle tone in bilateral lower extremities and due to that MRI of the cervical spine was obtained, which showed syrinx at the C6-C7 level and a T1 level hemangioma. Dr. Gutierrez recommended for the patient to follow up as an outpatient with neurology in approximately 4 to 6 weeks. The patient is also recommended to follow up with the patient's primary care provider, Dr. Celina Marie in 4 to 7 days. Over the course of the patient's hospital stay, the patient received physical therapy and by the time of discharge he had ambulated independently with slightly wide gait but steadily. The patient is going to be discharged to home. PHYSICAL EXAMINATION: At the time of discharge: Blood pressure 130/72, heart rate of 80 and regular, respiratory rate of 16, oxygen saturation 95% on room air, and temperature 97.7. General Appearance: The patient is a very pleasant 67-year-old male who is in no acute distress. The patient is a rather withdrawn historian. He is alert, awake, and oriented x3. HEENT: Head atraumatic and normocephalic. Eyes: Pupils are equal, round, and reactive to light and accommodation. Oropharynx clear. Mucosa moist. Neck: Supple. No JVD, no bruits bilaterally. Cardiovascular: Regular, rate, and rhythm. No murmur. Respiratory: Clear to auscultation bilaterally. Abdomen: Soft and nontender. Bowel sounds present in all 4 quadrants. Extremities: There is no edema. Pulses are +2 bilaterally. No clubbing or cyanosis. Neuro Evaluation: Rather a poor historian, but oriented x3. [id number] was mildly dysmetric bilaterally, equally so. Mildly increased spasticity in bilateral lower extremities. Gait is wide, but steady. Motor strength is 5/5 bilaterally. Speech is clear. Please note that this is a short summary of the patient's hospitalization, please refer to further medical records for details. TIME SPENT: Approximately 45 minutes was spent on the patient's discharge. [id number]/CPS #: [id number] MTDD
== END 2017-12-11 13:55 | disposition home or self-care (01) | DRG 65 ==
LOC: ED 22:02 → MEDTELE 12-10 03:32 → OBSVTOIN 12-10 11:44
PROVIDERS: ADMIT Internal Medicine; ATTEND Internal Medicine
DX: I63.9 Cerebral infarction, unspecified (principal); G95.0 Syringomyelia and syringobulbia; G04.1 Tropical spastic paraplegia; I10 Essential (primary) hypertension; K21.9 Gastro-esophageal reflux disease without esophagitis; M25.552 Pain in left hip; M25.551 Pain in right hip; M25.562 Pain in left knee; M25.561 Pain in right knee; R10.32 Left lower quadrant pain; M50.30 Other cervical disc degeneration, unspecified cervical region; M48.02 Spinal stenosis, cervical region; I07.1 Rheumatic tricuspid insufficiency; D18.09 Hemangioma of other sites; M43.16 Spondylolisthesis, lumbar region; M47.816 Spondylosis without myelopathy or radiculopathy, lumbar region; M51.36 Other intervertebral disc degeneration, lumbar region; N40.0 Benign prostatic hyperplasia without lower urinary tract symptoms; E78.5 Hyperlipidemia, unspecified; R26.0 Ataxic gait; Z91.048 Other nonmedicinal substance allergy status; Z98.41 Cataract extraction status, right eye; Z83.79 Family history of other diseases of the digestive system; Z87.891 Personal history of nicotine dependence; Z72.89 Other problems related to lifestyle; Z82.3 Family history of stroke; Z82.49 Family history of ischemic heart disease and other diseases of the circulatory system; Z83.3 Family history of diabetes mellitus; Z79.82 Long term (current) use of aspirin; Z90.79 Acquired absence of other genital organ(s); Z91.81 History of falling
CPT/HCPCS: 36415; 70030; 70450; 70496; 70498; 70551; 72131; 72141; 74019; 80048; 80053; 80061; 81003; 82607; 83036; 83735; 85025; 85610; 85730; 86140; 93306; 99212; 99284; A9270-GY; G0378; G0463; G8978-GP-CJ; G8979-GP-CI; J1100; J1885; J2060; J2270; Q9967

== ENCOUNTER 2018-05-14 10:53 | Inpatient (IN) | payer MEDICARE, BC ==
--- NOTE | 2018-05-14 11:07 | ED ---
Complex/Multi-Sys Presentation - History Of Current Complaint Chief Complaint: EDWeakness Time Seen by Provider: 05/14/18 10:56 - Allergies/Home Medications Allergies/Adverse Reactions: Allergies Allergy/AdvReac Type Severity Reaction Status Date / Time Adhesive Tape [Plastic Tape] AdvReac SKIN Verified 12/09/17 22:09 REACTION SCOPE AdvReac MOUTH SORES Uncoded 12/09/17 22:09 PMH/Surg Hx/FS Hx/Imm Hx Endocrine/Hematology History: Denies: Hx Diabetes Cardiovascular History: Reports: Hx Hypertension Denies: Hx Pacemaker/ICD GI History: Reports: Hx Gastroesophageal Reflux Disease - controlled with med, Other GI Disorders - Hernia History: Reports: Other Problems/Disorders - enlarged prostate Denies: Hx Renal Disease Musculoskeletal History: Reports: Other Musculoskeletal History - bilateral hip/ kNee pain - hasn't seen a md Sensory History: Reports: Hx Cataracts - right eye only Denies: Hx Contacts or Glasses, Hx Hearing Aid Opthamlomology History: Reports: Hx Cataracts - right eye only Denies: Hx Contacts or Glasses Psychiatric History: Denies: Hx Panic Disorder - Surgical History Surgery Procedure, Year, and Place: right cataract surgery - 2014, [facility] [place]. right eye detached retina - 2014, [place]. prostate surgery, 2006 - [facility] [place] bilateral inguinal hernia repair , 2002 - [facility] [place]. right elbow surgery, 2001 - [facility] [place]. right hand. tonsils Hx Anesthesia Reactions: No Infectious Disease History: No Infectious Disease History: Denies: Traveled Outside the [place] in Last 30 Days - Family History Known Family History: Positive: Other - Diverticulitis - Social History Alcohol Use: None Substance Use Type: Reports: None Substance Use Comment - Amount & Last Used: was 6 cups coffee per day, down to 2 -3 now Smoking Status (MU): Former Smoker Type: Pipe Amount Used/How Often: occas pipe - 40 years ago Physical Exam Vital Signs On Initial Exam: Initial Vitals Temp Pulse Resp BP Pulse Ox 98.2 F 89 16 158/78 95 05/14/18 10:56 05/14/18 10:56 05/14/18 10:56 05/14/18 10:56 05/14/18 10:56 Diagnostics - Vital Signs Vital Signs Temp Pulse Resp BP Pulse Ox 05/14/18 10:56 98.2 F 89 16 158/78 95 - Laboratory Lab Statement: Any lab studies that have been ordered have been reviewed, and results considered in the medical decision making process. Discharge - Discharge Plan Referrals: Celina Marie MD [Primary Care Provider] - - Attestation Statements Document Initiated by Scribe: Yes
--- NOTE | 2018-05-14 11:14 | ED ---
Neurological HPI - HPI Summary HPI Summary: This patient is a 68 year old M presenting to [facility] accompanied by his with a chief complaint of weakness beginning last night upon waking in the middle of the night. Patient states that yesterday evening, prior to going to bed, he felt fatigued but otherwise had no other symptoms. Last night he woke up with nausea and weakness resulting in unsteady gait. Patient called his PCP, Dr. Marie, who referred him the ED. Patient reports he continues to stagger while walking and has been lightheaded today. reports that last night into today his gait has been unsteady, and his speech has been garbled from time to time. states he has complained specifically of left leg weakness. Patient denies headache, chest pain, and urinary/gastrointestinal symptoms. Patient had a TIA in December 2017. He states current symptoms are similar but are less severe. Patient is currently taking ASA and Lipitor. PMHx additionally includes HTN. - History of Current Complaint Chief Complaint: EDWeakness Stated Complaint: WEAKNESS/GENERAL ILLNESS Time Seen by Provider: 05/14/18 10:56 Hx Obtained From: Patient Onset/Duration: Sudden Onset, Started hours ago Timing: Constant Current Severity: Moderate Neurological Deficit Location: Generalized, LLE Pain Intensity: 0 Pain Scale Used: 0-10 Numeric Character: Lightheaded, Weak, Impaired Speech, Other: - nausea Associated Signs and Symptoms: Positive: Unsteady Gait, Weakness, Impaired Speech, Lightheadness, Nausea/Vomiting. Negative: Headache, Chest Pain Similar Episode/Dx as: TIA Related Hx: ASA - Additional Pertinent History Primary Care Physician: DEBBIE - Allergy/Home Medications Allergies/Adverse Reactions: Allergies Allergy/AdvReac Type Severity Reaction Status Date / Time Adhesive Tape [Plastic Tape] AdvReac SKIN Verified 12/09/17 22:09 REACTION SCOPE AdvReac MOUTH SORES Uncoded 12/09/17 22:09 Home Medications: Home Medications Atorvastatin* [Lipitor 80 MG*] 80 mg PO DAILY 05/14/18 [History Confirmed ] Finasteride TAB* [Proscar TAB*] 5 mg PO DAILY 05/14/18 [History Confirmed ] Omeprazole CAP* [Prilosec CAP* 20 MG] 20 mg PO DAILY 05/14/18 [History Confirmed 05/14/18] amLODIPine TAB* [Norvasc 5 mg TAB*] 10 mg PO DAILY 05/14/18 [History Confirmed 05/14/18] PMH/Surg Hx/FS Hx/Imm Hx Endocrine/Hematology History: Denies: Hx Diabetes Cardiovascular History: Reports: Hx Hypertension Denies: Hx Pacemaker/ICD GI History: Reports: Hx Gastroesophageal Reflux Disease - controlled with med, Other GI Disorders - Hernia History: Reports: Other Problems/Disorders - enlarged prostate Denies: Hx Renal Disease Musculoskeletal History: Reports: Other Musculoskeletal History - bilateral hip/ kNee pain - hasn't seen a md Sensory History: Reports: Hx Cataracts - right eye only Denies: Hx Contacts or Glasses, Hx Hearing Aid Opthamlomology History: Reports: Hx Cataracts - right eye only Denies: Hx Contacts or Glasses Neurological History: Reports: Hx Transient Ischemic Attacks (TIA) Psychiatric History: Denies: Hx Panic Disorder - Surgical History Surgery Procedure, Year, and Place: right cataract surgery - 2014, [facility] [place]. right eye detached retina - 2014, [place]. prostate surgery, 2006 - [facility] [place]. bilateral inguinal hernia repair , 2002 - [facility] [place]. right elbow surgery, 2001 - [facility] [place]. right hand. tonsils Hx Anesthesia Reactions: No Infectious Disease History: No Infectious Disease History: Denies: Traveled Outside the [place] in Last 30 Days - Family History Known Family History: Positive: Other - Diverticulitis - Social History Alcohol Use: None Substance Use Type: Reports: None Substance Use Comment - Amount & Last Used: was 6 cups coffee per day, down to 2 -3 now Smoking Status (MU): Former Smoker Type: Pipe Amount Used/How Often: occas pipe - 40 years ago Review of Systems Negative: Chest Pain Positive: Nausea. Negative: Abdominal Pain, Vomiting, Diarrhea Positive: no symptoms reported Positive: Weakness, Slurred Speech. Negative: Headache All Other Systems Reviewed And Are Negative: Yes Physical Exam - Summary Physical Exam Summary: Appearance: Well-appearing, Well-nourished, lying in bed comfortably Skin: Warm, dry, no obvious rash Eyes: sclera anicteric, no conjunctival pallor ENT: mucous membranes moist, pharynx appears normal Neck: Supple, nontender Respiratory: Clear to auscultation, no signs of respiratory distress Cardiovascular: Normal S1, S2. No murmurs. Normal distal pulses in tibial and radial bilaterally. Abdomen: Soft, nontender, normal active bowel sounds present Musculoskeletal: Normal, Strength/ROM Intact, Motor function in all 4 extremities is normal and symmetric. There is no rigidity or tremor noted. Neurological: A&Ox3, awake and alert, mentation is normal, speech is fluent and appropriate, Level of consciousness nml. The patient is alert and oriented. Cranial nerves are grossly intact. Gaze is conjugate and without nystagmus. Peripheral vision is intact to confrontation. There are no gross sensory abnormalities to light touch. There is no truncal ataxia. Gait is unsteady and wide based. Finger to nose shows mild ataxia. Positive Rombergs. GCS 15. Psychiatric: affect is normal, does not appear anxious or depressed Triage Information Reviewed: Yes Vital Signs On Initial Exam: Initial Vitals Temp Pulse Resp BP Pulse Ox 98.2 F 89 16 158/78 95 05/14/18 10:56 05/14/18 10:56 05/14/18 10:56 05/14/18 10:56 05/14/18 10:56 Vital Signs Reviewed: Yes - [place] Coma Scale Best Eye Response: 4 - Spontaneous Best Motor Response: 6 - Obeys Commands Best Verbal Response: 5 - Oriented Coma Scale Total: 15 Diagnostics - Vital Signs Vital Signs Temp Pulse Resp BP Pulse Ox 05/14/18 10:56 98.2 F 89 16 158/78 95 - Laboratory Result Diagrams: 05/15/18 05:45 05/15/18 05:45 Lab Statement: Any lab studies that have been ordered have been reviewed, and results considered in the medical decision making process. - CT Brain MRI CT Interpretation Completed By: Radiologist Summary of CT Findings: Small focal area of restriction of diffusion in the medial left temporal lobe. consistent with lacunar infarct. The cerebellum and brainstem demonstrates no evidence of acute stroke. - EKG 1118 Cardiac Rate: NL - 76 BPM EKG Rhythm: Sinus Rhythm Summary of EKG Findings: NSR at 76 BPM, P waves, QRS complex, and T waves are within normal limits, T waves and intervals are normal, no ischemic changes. 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 Operator/Release Non-Paretic Hand: Both Correctly Best Gaze (Only Horizontal Eye Movement): Normal Visual Field Testing: No Visual Loss Facial Paresis-Pt to Smile & Close Eyes or Grimace Symmetry: Normal/Symmetrical Motor Function - Right Arm: No Drift-Holds 10 Seconds Motor Function - Left Arm: No Drift-Holds 10 Seconds Motor Function - Right Leg: No Drift-Holds 10 Seconds Motor Function - Left Leg: No Drift-Holds 10 Seconds Limb Ataxia-Must be out of Proportion to Weakness Present: Absent Sensory (Use Pinprick to Test Arms/Legs/Trunk/Face): Normal Best Language (Describe Picture, Name Items): No Aphasia Dysarthria (Read Several Words): Normal Extinction and Inattention: No Abnormality Total Score: 0 Re-Evaluation - Re-Evaluation 1 Re-Evaluation Time: 13:40 Change: Improved - states patient has returned to baseline. Course/Dx - Course Course Of Treatment: 68 year old M presenting to [facility] accompanied by his with a chief complaint of weakness beginning last night upon waking in the middle of the night. Patient states that yesterday evening, prior to going to bed, he felt fatigued but otherwise had no other symptoms. Patient reports he continues to stagger while walking and has been lightheaded today. reports his speech has been garbled from time to time. Patient had a TIA in December 2017. states current symptoms are similar but are less severe. Brain CT reveals , as per radiologist: "Small focal area of restriction of diffusion in the medial left temporal lobe. consistent with lacunar infarct. The cerebellum and brainstem demonstrates no evidence of acute stroke.". An EKG is performed and is unremarkable. Bloodwork obtained revealing Hgb 13.8, Hct 40, MCH 32, and Glucose 130, but is otherwise unremarkable. Patient re-evaluated and states his gait has returned to baseline. At 13:57, Dr. Santos (neuro) is consulted and agrees to come to ED to evaluate patient. Dr. Santos suggests the patient is admitted to the hospitalist. Dr. Treadwell accepts patient for admission. - Diagnoses Provider Diagnoses: CVA (cerebral vascular accident) - Physician Notifications Discussed Care Of Patient With: Vicki Santos - neuro Time Discussed With Above Provider: 13:57 Instructed by Provider To: MD Will See In ED Discharge - Sign-Out/Discharge Documenting (check all that apply): Patient Departure - admit - Discharge Plan Condition: Stable Disposition: ADMITTED TO [facility] - Billing Disposition and Condition Condition: STABLE Disposition: Admitted to [facility] - Attestation Statements Document Initiated by Parisa: Yes Documenting Scribe: Radha Benavidez Provider For Whom Parisa is Documenting (Include Credential): Maurilio Woody MD Scribarsh Attestation: Radha Oshea, scribed for Maurilio Woody MD on 05/18/18 at 1242. Scribe Documentation Reviewed: Yes Provider Attestation: The documentation as recorded by the Radha zimmerman accurately reflects the service I personally performed and the decisions made by Maurilio duenas MD Status of Scribe Document: Viewed
[2018-05-14 11:31] LABS: ABS Basophils 0.1 10^3/ul (0-0.2); ABS Eosinophils 0.1 10^3/ul (0-0.6); ABS Monocytes 0.5 10^3/ul (0-0.8); ABS Neutrophils 4.8 10^3/ul (1.5-7.7); ABS Nucleated RBC 0 10^3/ul; Eosinophil % 1.7 %; Hematocrit 40 % (42-52); Hemoglobin 13.8 g/dl (14.0-18.0); Lymphocyte % 15.7 %; Mean Corpuscular HGB Conc 35 g/dl (31-36); Mean Corpuscular Hemoglobin 32 pg (27-31); Mean Corpuscular Volume 93 fL (80-94); Mean Platelet Volume 10.2 fL (7.4-10.4); Nucleated Red Blood Cells % 0.1; Platelet Count 184 10^3/ul (150-450); Red Blood Count 4.31 10^6/ul (4.00-5.40); Red Cell Distribution Width 13 % (10.5-15); White Blood Count 6.5 10^3/ul (3.5-10.8)
[2018-05-14 11:52] LABS: EGFR Non-African American 65.5 (>60)
[2018-05-14 13:42] LABS: Urine Appearance Clear; Urine Blood Negative (Negative); Urine Color Yellow; Urine Ketones Negative (Negative); Urine Protein Negative (Negative); Urine Specific Gravity 1.011 (1.010-1.030); Urine Urobilinogen Negative (Negative)
[2018-05-14] MEDS ORDERED: Ondansetron INJ* 2 MG/ML VIAL IV PRN (15:22)
[2018-05-14] MEDS ORDERED: Acetaminophen TAB* 325 MG PO PRN (15:22)
[2018-05-14] MEDS ORDERED: NS 0.9% 1000 ML* 1,000 ML IV ONE (15:30)
[2018-05-14] MEDS: Clopidogrel TAB* 75 MG PO SCH (17:33)
[2018-05-14 17:56] LABS: INR 1.02 (0.77-1.02)
[2018-05-14] MEDS: Heparin VIAL(*) 5000 UNITS/ML VIAL (FIVE THOUSAND) SUBCUT SCH (21:17)
--- NOTE | 2018-05-14 21:30 | HP ---
CC: Dr. Celina Marie; Dr. Santos; Dr. Gutierrez * HISTORY AND PHYSICAL: DATE OF ADMISSION: 05/14/18 PRIMARY CARE PROVIDER: Dr. Celina Marie. ATTENDING PHYSICIAN WHILE IN THE HOSPITAL: Dr. Nicole Saba * (report dictated by Tunde Wall NP). CONSULTING NEUROLOGIST: Dr. Santos. CHIEF COMPLAINT: 1. Unsteady gait. 2. Difficulty with speech. HISTORY OF PRESENT ILLNESS: Mr. Aquino is a 68-year-old patient who has a history of CVA, hypertension, GERD, and a history of syringomyelia which was recently diagnosed with last hospitalization on 12/10/17 for which he also was diagnosed with a stroke. He comes in today. He says that last night he got up in the middle of the night, he felt like he was bouncing from wall to wall. He felt like his gait was very unsteady. He felt off. He just states that he felt weak. noted that he at one point did have trouble with getting his words out particular this morning. He got up this morning, he was able to have breakfast. He does state that he felt lightheaded. He felt very unsteady. His thought may be he was coming down with something. She called his primary who felt that he should come into the ER. He denies having any fevers, vomiting. No chills. No cough, cold symptoms. He denied any change in medications as he has been taking them right along. He said that his biggest concern was that he did not feel right, he had trouble getting his words out at times. There were no reports of facial droop, no reports of weakness to one extremity or the other, and no reports of sensory losses. He denied any visual changes. Again, the biggest complaint was this ataxia and unsteady gait and the trouble with the speech of him getting his words out. He came into the ED. He was evaluated. An MRI was obtained and it did show a new area of small lacunar infarct. Because of this, we were asked to evaluate for admission. PAST MEDICAL HISTORY: Significant for: 1. GERD. 2. Hypertension. 3. CVA. 4. Syringomyelia. PAST SURGICAL HISTORY: 1. He has had hernia repair inguinally and umbilical with mesh. 2. TURP. 3. Retinal detachment. 4. Cataracts extraction. 5. Right hand surgery. 6. Tonsillectomy. HOME MEDICATIONS: According to the list provided by the patient includes: 1. Aspirin 81 mg daily. 2. Amlodipine 10 mg daily. 3. Multivitamin 1 tablet daily. 4. Proscar 5 mg daily. 5. Prilosec 20 mg p.o. daily. 6. Lipitor 80 mg daily. ALLERGIES TO MEDICATIONS: Include TAPE. FAMILY HISTORY: Mother had a history of CVA. Father had a history of hypertension. SOCIAL HISTORY: He used to smoke a pipe when he was in his 20s. He does not drink alcohol. Surrogate decision maker is his . REVIEW OF SYSTEMS: There is no documented fever. He denied having any significant weight change. He denied any double vision. There is no ear discharge. He denied having any rhinorrhea. There was no sore throat. There was no thyroid enlargement. Denies having any chest pain. There was no orthopnea. There was no nocturnal dyspnea. He denied having any abdominal pain. There was no nausea, no vomiting. No dysuria. There was no frequency. No seizure. There was no loss of consciousness. No pruritus and no skin ulcerations. Review of 14 systems completed, all others were negative. PHYSICAL EXAMINATION GENERAL: At this time, Mr. Aquino is a 68-year-old male patient. He is sitting in the ED stretcher. He does not appear to be in any acute distress. VITAL SIGNS: Blood pressure 142/72, pulse 71, respirations 18, O2 sat 93%, temperature 98.2. HEENT: Head is atraumatic and normocephalic. Eyes: EOMs are intact. Sclerae are anicteric and not pale. Throat: Oral mucosa appears to be moist. No oropharyngeal erythema. NECK: Supple. LUNGS: Clear to auscultation bilaterally. There were no wheezes, rales, or rhonchi. HEART: Sounds S1, S2. He had a regular rate and rhythm. There were no murmurs , rubs, or gallops. ABDOMEN: Soft, it was flat, it was nontender. Bowel sounds were present. EXTREMITIES: Pulses were 2+ throughout. He had peripheral edema. He is moving all 4 extremities with 5/5 strength. NEUROLOGICAL: He is awake, he is alert. His speech is clear although he had a hard time coming up with his primary care provider's name. He knew the name but could not say it and then when I asked him if he could repeat [place], he could repeat it. His rirxia-bg-pbty was intact bilaterally. Tklh-fr-vyzi intact bilaterally. He did have an unsteady gait with iqib-dv-lgvq, he almost fell. His speech was clear. His tongue was midline. There was no facial drooping. Sensory was grossly intact to the upper and lower extremities and to also his face. Pupils were equal and reactive to light. He once again intact. His cranial nerves were otherwise intact. He had no gross focal deficits besides difficulty with speech. SKIN: Intact. LABORATORY DATA/DIAGNOSTIC STUDIES: Today revealing WBC 6.5, RBC of 4.31, hemoglobin of 13.8, hematocrit of 40, and a platelet count of 184. Sodium was 139, potassium of 4.1, chloride of 105, bicarb 27, BUN 16, creatinine 1.10, glucose 130, calcium 9.4. Total bili 0.5, AST 26, ALT 32, alk phos 67, albumin of 4.1. Urine was obtained, it was negative. He had a brain MRI obtained today, which impression, small focal area of restriction of diffusion in the medial left temporal lobe consistent with lacunar infarct. Cerebellum and brainstem demonstrates no evidence of acute stroke. He had an EKG obtained today, which showed a normal sinus rhythm, rate of 76. He had no ST elevations or T-wave inversions. He did have inverted T waves in aVF, which is now new, otherwise no changes. He did have CTA head and neck, which showed impression, this was done in December; no aneurysm, vascular malformation, occlusion, or stenosis of the visualized intracranial circulation. No internal carotid artery stenosis by NASCET criteria, and he had an echo done last time he was here as well in December of this year which showed an EF of greater than 65%, but there was no documented PFO based on this transthoracic echo. Old medical records were reviewed. ASSESSMENT AND PLAN: Mr. Aquino is a 68-year-old male patient coming into the ED today with complaints again of difficulty with gait and in addition to this also some episodes of difficulty with speech, on evaluation found now to have a new small lacunar infarct. He will be admitted under observation status for: 1. Lacunar infarct. I did touch base with Dr. Santos, she will evaluate the patient. I am going to add Plavix to his current regimen with his statin and aspirin. I will check his lipid panel and A1c, place him on telemetry. He just had a recent echocardiogram and the concern is here could he possibly have a cardioembolic source. Dr. Santos did feel that BEBE may be necessary, so I have prepped him for this making him n.p.o. I have ordered the test. She is evaluating him. Again, if we still feel like this is what we want, we will pursue this tomorrow. Long-term monitoring for atrial fibrillation, we will start him on telemetry here, increase his antiplatelet therapy to Plavix for at least 30 days and he can follow up with his primary neurologist, Dr. Gutierrez, and Dr. Santos and his PCP. We will get neuro checks. I have ordered PT/OT and bedside nursing evaluation. He can have a heart healthy diet, pending swallow evaluation and I will continue to follow. 2. Hypertension. I will continue his medications as prescribed. He can have his amlodipine tomorrow. 3. Gastroesophageal reflux disease. Continue PPI therapy. 4. History of cerebrovascular accident. Again, we are increasing his antiplatelet . We will continue his secondary prevention and continue further workup with the current acute infarct. 5. History of syringomyelia. Again, this is followed with Dr. Gutierrez. He has had repeat MRI that has been stable. He can follow up with his PCP and his primary neurologist. At this point, there are no new symptoms. 6. DVT prophylaxis. I have ordered heparin subcutaneous. 7. Code status. Full code. 8. Fluids, electrolytes, nutrition. Again, pending swallow evaluation. He can have a heart-healthy diet. TIME SPENT: Time spent on the admission was 60 minutes; greater than half the time was spent [id number] with the patient obtaining my history and physical, other half the time was spent going over the plan of care with the patient and implementing plan of care. I did discuss the plan of care with my attending, Dr. Saba; she is in agreement. TUNDE WALL, DONALDO [id number]/[facility] #: [id number] VISH
--- NOTE | 2018-05-15 01:26 | CONS ---
CC: Dr. Srinivas Gutierrez; Dr. Celina Marie * CONSULTATION REPORT: DATE OF CONSULT: 05/14/18 REASON FOR CONSULT: Stroke. 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 He was treated with aspirin and high dose atorvastatin, and has followed up with . Mr. Aquino has been doing well until this past week. He tells me that he has become weak and tired and noticed he had to reach out more when he was walking. Last night, he became nauseated and he noticed he was staggering in the middle of the night to go to the bathroom. He remembers the right arm tingling the other night. He denies any headache or neck pain. There has been no chest pain, chest pressure, palpitation, shortness of breath. His indicates that on Saturday, Mr. Aquino had told his daughter that, "I am not doing well". She had noticed his gait was off. Saturday, it was still off and today he garbled his speech when he said 'Dr. Marie', and she thought she should bring him in. PAST MEDICAL HISTORY: Includes: 1. Hypertension. 2. Hyperlipidemia. 3. GI reflex. 4. Stroke with admission in December 2017 with findings of a subcortical right posterior coronary radiata ischemic stroke for which he was treated with aspirin and atorvastatin. His echocardiogram showed moderate LVH. There was no cardioembolic source noted. His CTA of the brain and neck showed no evidence of significant stenosis, and his MRI showed atrophy and small vessel ischemic disease in addition to the acute stroke. He was followed up as an outpatient in both January and March with Dr. Gutierrez. He was noted to have a mild syringomyelia in the cervical spine, which remained stable, and in his last visit he had stopped drinking alcohol. PAST SURGICAL HISTORY: Surgical history in the past includes: 1. Right retinal detachment. 2. Right cataract repair. 3. Right carpal tunnel syndrome. 4. Hemorrhoid surgery. MEDICATIONS: On admission included: 1. Atorvastatin 80 mg p.o. q. day. 2. Aspirin 81 mg p.o. q. day. 3. Amlodipine 5 mg p.o. q. day. 4. Multivitamin p.o. q. day. 5. Proscar 5 mg p.o. q. day. 6. Omeprazole 20 mg p.o. q. day. ALLERGIES: He has no known drug allergies. He does have ADHESIVE TAPE listed as an allergy. FAMILY HISTORY: Includes a mother who at 83 of a stroke. She also had a history of cerebral aneurysm. He had a maternal uncle with a cerebral aneurysm. His father in his 80s, he is not sure it it was kidney or heart. He has 1 full-brother and 6 half-siblings (2 are brothers and 4 sisters). He indicates there are no significant medical problems. He has 1 daughter with hypertension and a history of an ovarian tumor. SOCIAL HISTORY: He does not smoke. He does not drink alcohol. He denies any illicit drug use. REVIEW OF SYSTEMS: On review of systems, there has been no double vision. No loss of vision. He has noted a loss of memory for quite a while. There has no new change in mood. He has some difficulty with hearing. There has been no difficulty with swallowing. He denies any chest pain, chest pressure, palpitation, shortness of breath, new numbness or weakness of arms or legs. Difficulty with coordination as noted in the HPI. There has been no change in bowel or bladder habits. He denies any new joint pain. Occasionally, there can be an itch in the back near a mole. He has had no weight loss. He can get hot at night, but no drenching night sweats and no high fevers of unknown reason. PHYSICAL EXAM: On examination, his most recent temperature was 98.5 degrees Fahrenheit. He had a pulse of 81, respiratory rate was 16, saturation was 94%, blood pressure was 150/78. He had a regular cardiac rhythm. His lungs were clear to auscultation. There was slight peripheral edema. His peripheral pulses were intact in the posterior tibialis and dorsalis pedis. No rashes were noted. There was no petechiae. He was awake, alert. He knew he was at [facility] and knew the year. Pupils were equal and responsive to light. His fundi were difficult to visualize; I was able to see some of the vasculature which looked okay. He had full extraocular movements with no nystagmus, full lozoya to confrontation. His facial expression and sensation were symmetric. His hearing was diminished, but equal bilaterally. His palate was upgoing. Tongue was midline. Sternocleidomastoid and trapezius were 5/5 in strength. There was normal bulk and tone. No pronator drift. Full strength was noted in the upper and lower extremities with normal finger-to- nose and ovdj-[id number]-bwvx movement. Vibration sensation was decreased at the toes; ankles, knees by 20 seconds and decreased at the right distal interphalangeal joint by 5 to 10 seconds. Proprioception was intact. There was no clear asymmetry or length dependent changes to pinprick, cold, or light touch. Reflexes were brisk at 3+ throughout. Toes were downgoing bilaterally. No clonus was noted. He had an increased stance and Romberg was wobbly. He could get on to his heels and toes when holding onto the examiner. He could walk forward and backwards with an increased stance, for a few steps while in the emergency room while hooked up to monitoring. DIAGNOSTIC STUDIES/LAB DATA: Data includes CBC with normal white count, slightly low hemoglobin and hematocrit, and platelets within normal limits. His complete metabolic panel showed an elevated glucose of 130. His urinalysis was negative. His MRI of the brain showed a new small ischemic temporal stroke on diffusion-weighted image that was subcortical, and I do question a very small ischemic lesion in the left thalamus on direct reviewed, with slightly bright changes on diffusion-weighted image and dark on ADC map. He does have extensive small vessel ischemic disease in the periventricular subcortical region, and in the pontine region. Data includes previous admission, review of the chart with pertinent details put into the HPI, as well as review of the outpatient chart. also had data regarding his recent blood pressure, which appeared to be under pretty good control. IMPRESSION: A 68-year-old gentleman with a history of ischemic stroke in December in the subcortical right posterior pollack radiata with history of extensive small vessel ischemic disease on MRI, hypertension, dyslipidemia, and a cervical syrinx with hyperreflexia and abnormal gait at baseline, who is being treated with aspirin and atorvastatin. He is now in the emergency room with neurologic symptoms in the last 2 to 3 days including change in gait, change in speech. He now has new ischemia on MRI of the brain in left temporal region, I question subtle change in the left thalamus. He is to be admitted to telemetry for monitoring for possibility of cardioembolic source. He is to be kept n.p.o. for transesophageal echocardiogram. Plavix has been added to his aspirin. He will continue on atorvastatin. I will watch his blood pressure. He is hypertensive in the ER; however, this may be just a transient increase in the setting of stress. For now, allow permissive hypertension. If his blood pressure gets above 180/100, we will consider gentle treatment. Over 90 minutes was spent in patient care with 50% of the time was spent in education and counseling regarding diagnosis, differential diagnosis, symptoms, previous findings, previous workup, plan for admission. Case was discussed with hospitalist, Tunde Wall. Case was also discussed with ER physician. [id number]/[facility] #: [id number] VISH
[2018-05-15] MEDS: Heparin VIAL(*) 5000 UNITS/ML VIAL (FIVE THOUSAND) SUBCUT SCH ×3 (05:51→21:00)
[2018-05-15 06:09] LABS: ABS Basophils 0.1 10^3/ul (0-0.2); ABS Eosinophils 0.2 10^3/ul (0-0.6); ABS Lymphocytes 1.1 10^3/ul (1.0-4.8); ABS Monocytes 0.5 10^3/ul (0-0.8); ABS Neutrophils 3.7 10^3/ul (1.5-7.7); ABS Nucleated RBC 0 10^3/ul; Eosinophil % 3.8 %; Hematocrit 38 % (42-52); Lymphocyte % 19.7 %; Mean Corpuscular HGB Conc 34 g/dl (31-36); Mean Corpuscular Hemoglobin 32 pg (27-31); Mean Corpuscular Volume 93 fL (80-94); Mean Platelet Volume 10.1 fL (7.4-10.4); Nucleated Red Blood Cells % 0; Platelet Count 176 10^3/ul (150-450); Red Cell Distribution Width 14 % (10.5-15); White Blood Count 5.5 10^3/ul (3.5-10.8)
--- NOTE | 2018-05-15 11:02 | PN ---
Progress Note - Progress Note Date of Service: 05/15/18 Note: HPI: No new symptoms: change in vision, numbness or weakness of arms or legs, chest pain, palpitations. Continues to feel as if gait is off. Looking forward to getting transesophageal echo done, so that he can eat. Some bleeding noted with site of heparin injection. Active Medications Generic Name Dose Route Start Last Admin Trade Name Freq PRN Reason Stop Dose Admin Acetaminophen 650 mg 05/14/18 15:22 Tylenol Tab* PO Q4H PRN FEVER/PAIN Amlodipine Besylate 10 mg 05/15/18 09:00 Norvasc Tab* PO DAILY [facility] Aspirin 81 mg 05/15/18 09:00 Aspirin Ec Tab* PO DAILY [facility] Atorvastatin Calcium 80 mg 05/15/18 09:00 Lipitor* PO DAILY [facility] Clopidogrel Bisulfate 75 mg 05/14/18 16:00 05/14/18 17:33 Plavix Tab* PO 75 mg DAILY [facility] Administration Finasteride 5 mg 05/15/18 09:00 Proscar Tab* PO DAILY [facility] Heparin Sodium (Porcine) 5,000 units 05/14/18 22:00 05/15/18 05:51 Heparin Vial(*) SUBCUT 5,000 units Q8HR [facility] Administration Ondansetron HCl 4 mg 05/14/18 15:22 Zofran Inj* IV Q6H PRN NAUSEA Pantoprazole Sodium 40 mg 05/15/18 09:00 Protonix Tab (Nf) PO DAILY [facility] Vital Signs 05/14/18 05/14/18 05/14/18 10:56 11:09 11:10 Temperature 98.2 F Pulse Rate 89 80 Respiratory 16 15 13 Rate Blood Pressure 158/78 155/80 (mmHg) O2 Sat by Pulse 95 Oximetry 05/14/18 05/14/18 05/14/18 11:28 12:24 12:26 Temperature Pulse Rate Respiratory 28 16 Rate Blood Pressure 138/75 (mmHg) O2 Sat by Pulse 97 Oximetry 05/14/18 05/14/18 05/14/18 12:40 12:43 13:00 Temperature Pulse Rate 72 76 75 Respiratory 19 18 12 Rate Blood Pressure 133/71 129/73 (mmHg) O2 Sat by Pulse 92 93 91 Oximetry 05/14/18 05/14/18 05/14/18 13:10 13:40 15:24 Temperature Pulse Rate 74 78 72 Respiratory 18 16 15 Rate Blood Pressure 140/79 136/76 142/72 (mmHg) O2 Sat by Pulse 92 92 93 Oximetry 05/14/18 05/14/18 05/14/18 15:46 16:08 19:28 Temperature 98.5 F 98.8 F 98.2 F Pulse Rate 81 77 77 Respiratory 16 18 17 Rate Blood Pressure 150/78 148/72 130/63 (mmHg) O2 Sat by Pulse 94 94 96 Oximetry 05/14/18 05/15/18 05/15/18 23:26 00:19 03:45 Temperature 97.6 F 98.8 F Pulse Rate 71 70 69 Respiratory 20 20 Rate Blood Pressure 92/48 128/65 121/66 (mmHg) O2 Sat by Pulse 94 95 Oximetry 05/15/18 07:15 Temperature 98.4 F Pulse Rate 80 Respiratory 12 Rate Blood Pressure 140/80 (mmHg) O2 Sat by Pulse 95 Oximetry General: Awake, Alert, Oriented x3 Chest: Clear to auscultation bilaterally Cardiovascular: Regular rate and rhythm without murmurs, rubs, gallops Extremities: No edema, or cord to palpation of calves Neurological Findings: Awake, Alert, Oriented x3 Speech: fluent without dysarthric, repetition intact Cranial Nerve: PE, EOM intact, VFF, no nystagmus, face symmetric bilaterally, facial sensation intact Motor: s/s throughout, proximal and distal extremities x4 tone/bulk normal Sensation: intact to LT bilaterally upper and lower extremities Finger to nose and heel to tran movements were normal Gait: independent with increased stance Data: Telemetry: no atrial fibrillation noted to date. IMPRESSION: 68 year old gentleman with history of ischemic stroke in December 2017 on aspirin and atorvastatin, and history of cervical syrinx, now with change in gait and new left temporal subcortical ischemia and questioned left thalamic ischemic stroke. He had extensive work up in his December admission. CTA brain and neck showed no stenosis. New stroke (s) subcortical and most likely small vessel vs. cardioembolic. He is on Plavix and Aspirin. Continue high dose statin. His blood pressure has been good. Transesophageal echo (TTE) planned this morning. Continue to monitor on telemetry. If cardioembolic source is found, this will pattern changer and repairer. If no source found with above, salvage determiner monitoring as an outpatient may want to be considered. Patient's outpatient neurologist will be taking over neurohospitalist service tomorrow (Dr. Gutierrez). Education was given to patient and family. Will return with results of BEBE tonight, as available, for discussion. > 30 minutes was spent in patient care, > 50% of the time was spent in education and counseling regarding stroke, symptoms, treatment, medication side effects, and further work up.
[2018-05-15] MEDS: Atorvastatin* 80 MG TAB PO SCH (11:42)
[2018-05-15] MEDS: amLODIPine TAB* 5 MG PO SCH (11:42)
[2018-05-15] MEDS: Aspirin EC TAB* 81 MG TAB.EC PO SCH (11:42)
[2018-05-15] MEDS: Clopidogrel TAB* 75 MG PO SCH (11:42)
[2018-05-15] MEDS: Finasteride TAB* 5 MG PO SCH (11:42)
[2018-05-15] MEDS: CMCS: Pantoprazole TAB (NF) 40 MG TAB PO SCH (11:42)
[2018-05-15] MEDS ORDERED: Flumazenil* 0.1 MG/ML 5 ML MDV ONE (12:27)
[2018-05-15] MEDS ORDERED: fentaNYL* 50 MCG/ML 2 ML VIAL (100 MCG VIAL) ONE (12:27)
[2018-05-15] MEDS ORDERED: Lidocaine 2% VISCOUS* 15 ML UDC ONE (12:27)
[2018-05-15] MEDS ORDERED: Midazolam* 1 MG/ML 10 ML VIAL (10 MG) ONE (12:27)
[2018-05-15] MEDS ORDERED: Naloxone* 0.4 MG/ML 1 ML VIAL ONE (12:27)
--- NOTE | 2018-05-15 14:26 | TEE ---
Patient: JOSE BRAXTON [facility] Rec#: [id number] : 1950 Date: 05/15/2018 Age: 68y Height: 152 cm / 59.8 in Weight: 72.6 kg / 160.0 lbs Sex: M BSA: 1.69 Room#: [facility] Admit Date#: 05/14/2018 Type: Inpatient Referring: Tunde Wall NP Performing: Collins Padilla MD Reading: Collins Padilla MD Harmonic Analyst: Sara Brito RDCS Nurse: Redd Mccall Nurse: Claudia Palmer CC: Celina Marie Transesophageal Echocardiogram Indication: CVA BP: 140/80 HR: 70 Rhythm: NSR Findings History: HTN, CVA. Technical Comments: The study quality is good. Left Ventricle: The left ventricular chamber size is normal. Moderate concentric left ventricular hypertrophy is observed. Global left ventricular wall motion and contractility are within normal limits. There is normal left ventricular systolic function. The estimated ejection fraction is 60-65%. Abnormal left ventricular diastolic function is observed. Abnormal left ventricular diastolic filling is observed, consistent with impaired relaxation. Left Atrium: The left atrium is moderately dilated. The left atrial appendage velocity is normal. No thrombus is visualized within the left atrium. There is no thrombus visualized in the left atrial appendage. Right Ventricle: The right ventricle wall thickness is mildly increased. The right ventricular cavity size is normal. The right ventricular global systolic function is normal. Right Atrium: The right atrium is mildly dilated. A prominent eustachian valve is noted in the right atrium. A patent foramen ovale is not demonstrated by color Doppler. There is evidence of an atrial septal aneurysm. Possible very faint bubbles crossing noted. Aortic Valve: The aortic valve leaflets are mildly thickened. There is aortic annular calcification. There is moderate aortic regurgitation. There is borderline aortic stenosis present. Mitral Valve: The mitral valve leaflets do not appear thickened. There is a trace of mitral regurgitation. There is no evidence of mitral stenosis. Tricuspid Valve: The tricuspid valve leaflets are normal. There is trace tricuspid regurgitation. Unable to estimate the right ventricular systolic pressure. There is no tricuspid stenosis. Pulmonic Valve: The pulmonic valve appears normal. There is no evidence of pulmonic regurgitation. There is no pulmonic stenosis. Pericardium: There is no significant pericardial effusion. Aorta: There is no dilatation of the ascending aorta. The aortic root is normal in size. There is plaque visualized in the transverse aorta. There is minimal non-mobile atherosclerotic plaque in the visualized segments of the aorta. Pulmonary Artery: The main pulmonary artery appears normal. Venous: The bicaval view was obtained and appears normal. The pulmonary veins appear normal.2 of 4 visualized. The pulmonary veins appear normal in size. BEBE Procedures: All standard views were attempted within the limitations of patient tolerance and safety. History and physical as well as labs were reviewed. The patient was in a fasting state. Risks and benefits of the procedure, including alternatives, were discussed and written informed consent was obtained. The patient and/or their health care strategic partnership representative expressed understanding of the procedure, risks and benefits. Baseline and continuous monitoring of blood pressure, heart rate, pulse oximetry and heart rhythm was performed throughout the procedure. The appropriate time-out procedure was performed as per [facility] protocol. The patient was placed in the left lateral decubitus position. The patient's posterior pharynx was anesthetized with 20ml of 2% viscous lidocaine. The patient received IV Midazolam with a total dose of 4 mg. The patient received IV Fentanyl with a total dose of 75 mcg. An oral bite block was inserted for protection of oral dentition. The multiplane transesophageal echocardiogram probe was inserted through the posterior oropharynx and advanced into the esophagus without difficulty. Multiple 2D images were obtained of the heart and its related structures. Color flow Doppler was used for evaluation. Spectral Doppler was also used. The atrial septum was interrogated with color flow Doppler. At the conclusion of the procedure the probe was removed with continuous suction without complications. The patient tolerated the procedure with no apparent complications. Contrast: Normal saline was used as contrast for the bubble study. Images 20 aand 21. Intravenous contrast was used to help determine presence of intracardiac shunting. Conclusions The left ventricular chamber size is normal. Moderate concentric left ventricular hypertrophy is observed. The estimated ejection fraction is 60-65%. The left atrium is moderately dilated. No thrombus is visualized within the left atrium. There is no thrombus visualized in the left atrial appendage. The right atrium is mildly dilated. A patent foramen ovale is not demonstrated by color Doppler. There is evidence of an atrial septal aneurysm. Possible very faint bubbles crossing noted. There is moderate aortic regurgitation. There is a trace of mitral regurgitation. There is trace tricuspid regurgitation.
--- NOTE | 2018-05-15 17:46 | PN ---
Progress Note - Progress Note Date of Service: 05/15/18 Note: Brief note to follow up on testing during day. See progress note from earlier today for more details. No new symptoms. Has a good appetite after being NPO. Yet to work with PT secondary to timing with transesophageal echo (BEBE). No cardioembolic source of stroke noted on BEBE Continues monitoring on telemetry. Education given to patient regarding work up to date. Plan as outlined this morning.
--- NOTE | 2018-05-15 17:58 | PN ---
Subjective Date of Service: 05/15/18 Interval History: Pt resting comfortably in bed, no acute distress. Pt's feels his speech is at his baseline. Pt has not walked yet, but will do so with PT. Denies shortness of breath, chest pain, palpitations, nausea/vomiting, abdominal pain, change in vision, numbness or tingling in legs. Eager to eat dinner after being NPO for BEBE. Objective Active Medications: Acetaminophen (Tylenol Tab*) 650 mg PO Q4H PRN PRN Reason: FEVER/PAIN Amlodipine Besylate (Norvasc Tab*) 10 mg PO DAILY [facility] Last Admin: 05/15/18 11:42 Dose: Not Given Aspirin (Aspirin Ec Tab*) 81 mg PO DAILY [facility] Last Admin: 05/15/18 11:42 Dose: Not Given Atorvastatin Calcium (Lipitor*) 80 mg PO DAILY [facility] Last Admin: 05/15/18 11:42 Dose: Not Given Clopidogrel Bisulfate (Plavix Tab*) 75 mg PO DAILY [facility] Last Admin: 05/15/18 11:42 Dose: Not Given Finasteride (Proscar Tab*) 5 mg PO DAILY [facility] Last Admin: 05/15/18 11:42 Dose: Not Given Heparin Sodium (Porcine) (Heparin Vial(*)) 5,000 units SUBCUT Q8HR [facility] Last Admin: 05/15/18 14:14 Dose: 5,000 units Ondansetron HCl (Zofran Inj*) 4 mg IV Q6H PRN PRN Reason: NAUSEA Pantoprazole Sodium (Protonix Tab (Nf)) 40 mg PO DAILY [facility] Last Admin: 05/15/18 11:42 Dose: Not Given Vital Signs - 8 hr 05/15/18 05/15/18 05/15/18 11:38 13:58 15:34 Temperature 98.6 F 98.2 F 97.9 F Pulse Rate 78 74 66 Respiratory 16 16 Rate Blood Pressure 138/68 112/69 (mmHg) O2 Sat by Pulse 95 95 93 Oximetry Oxygen Devices in Use Now: None Eyes: No Scleral Icterus, PERRLA Ears/Nose/Mouth/Throat: NL Teeth, Lips, Gums, Mucous Membranes Moist Neck: NL Appearance and Movements; NL JVP, Trachea Midline Respiratory: Symmetrical Chest Expansion and Respiratory Effort, Clear to Auscultation Cardiovascular: NL Sounds; No Murmurs; No JVD, RRR Abdominal: NL Sounds; No Tenderness; No Distention Extremities: No Edema, No Clubbing, Cyanosis Skin: No Rash or Ulcers Neurological: Alert and Oriented x 3, NL Sensation, NL Muscle Strength and Tone , - - Facial symmery intact. EOMs intact. No nystagmus. Finger to nose intact. No pronator drift. 5/5 strength in all 4 extremities. Lines/Tubes/Other Access: Clean, Dry and Intact Peripheral IV Nutrition: Taking PO's Result Diagrams: 05/15/18 05:45 05/15/18 05:45 Assess/Plan/Problems-Billing Assessment: 68 year old male with PMH ischemic stroke in December who presented to the ED with change in gait and speech. MRI showed new ischemia in L temporal region. Neuro following - Patient Problems (1) Ischemic cerebrovascular accident (CVA) Current Visit: No Status: Acute Code(s): I63.9 - CEREBRAL INFARCTION, UNSPECIFIED SNOMED Code(s): 841366972 Comment: - MRI with new medial left temporal lobe lacular infarct - Dr Santos following. Continue aspirin, plavix, lipitor. Pt follows with Dr. Gutierrez since last CVA in December (R posterior pollack radiata CVA) - BEBE today w/o PFO or thrombus. CTA head/neck done in showed no significant stenosis. - PT/OT - Continue tele overnight. Might need outpatient event monitoring. (2) Dyslipidemia Current Visit: No Status: Acute Code(s): E78.5 - HYPERLIPIDEMIA, UNSPECIFIED SNOMED Code(s): 542504173 Comment: - Continue lipitor (3) HTN (hypertension) Current Visit: No Status: Acute Code(s): I10 - ESSENTIAL (PRIMARY) HYPERTENSION SNOMED Code(s): 00302913 Comment: - Normotensive on Norvasc (4) DVT prophylaxis Current Visit: No Status: Acute Code(s): UEX1550 - SNOMED Code(s): 920489166 Comment: - Continue HSQ (5) Full code status Current Visit: Yes Status: Acute Code(s): Z78.9 - OTHER SPECIFIED HEALTH STATUS SNOMED Code(s): 990487314 Status and Disposition: Anticipate discharge to home when medically stable
[2018-05-16] MEDS: Heparin VIAL(*) 5000 UNITS/ML VIAL (FIVE THOUSAND) SUBCUT SCH ×2 (05:43→14:01)
[2018-05-16] MEDS: amLODIPine TAB* 5 MG PO SCH (08:05)
[2018-05-16] MEDS: Atorvastatin* 80 MG TAB PO SCH (08:06)
[2018-05-16] MEDS: CMCS: Pantoprazole TAB (NF) 40 MG TAB PO SCH (08:06)
[2018-05-16] MEDS: Clopidogrel TAB* 75 MG PO SCH (08:06)
[2018-05-16] MEDS: Aspirin EC TAB* 81 MG TAB.EC PO SCH (08:07)
[2018-05-16] MEDS: Finasteride TAB* 5 MG PO SCH (08:07)
--- NOTE | 2018-05-16 11:47 | PN ---
Subjective Date of Service: 05/16/18 Interval History: Pt resting comfortably in chair, NAD. Pt walked with PT and feels his gait is at his baseline. Pt is eager to go home. Denies shortness of breath, chest pain , paliptations, headache, dizziness, focal weakness, numbness or tingling in extremities. Denies abdominal pain, nausea, vomiting. Objective Active Medications: Acetaminophen (Tylenol Tab*) 650 mg PO Q4H PRN PRN Reason: FEVER/PAIN Amlodipine Besylate (Norvasc Tab*) 10 mg PO DAILY [facility] Last Admin: 05/16/18 08:05 Dose: 10 mg Aspirin (Aspirin Ec Tab*) 81 mg PO DAILY [facility] Last Admin: 05/16/18 08:07 Dose: 81 mg Atorvastatin Calcium (Lipitor*) 80 mg PO DAILY [facility] Last Admin: 05/16/18 08:06 Dose: 80 mg Clopidogrel Bisulfate (Plavix Tab*) 75 mg PO DAILY [facility] Last Admin: 05/16/18 08:06 Dose: 75 mg Finasteride (Proscar Tab*) 5 mg PO DAILY [facility] Last Admin: 05/16/18 08:07 Dose: 5 mg Heparin Sodium (Porcine) (Heparin Vial(*)) 5,000 units SUBCUT Q8HR [facility] Last Admin: 05/16/18 05:43 Dose: 5,000 units Ondansetron HCl (Zofran Inj*) 4 mg IV Q6H PRN PRN Reason: NAUSEA Pantoprazole Sodium (Protonix Tab (Nf)) 40 mg PO DAILY [facility] Last Admin: 05/16/18 08:06 Dose: 40 mg Vital Signs - 8 hr 05/16/18 07:39 Temperature 98.2 F Pulse Rate 69 Respiratory 20 Rate Blood Pressure 126/62 (mmHg) O2 Sat by Pulse 96 Oximetry Oxygen Devices in Use Now: None Eyes: No Scleral Icterus, PERRLA Ears/Nose/Mouth/Throat: NL Teeth, Lips, Gums, Mucous Membranes Moist Neck: NL Appearance and Movements; NL JVP, Trachea Midline Respiratory: Symmetrical Chest Expansion and Respiratory Effort, Clear to Auscultation Cardiovascular: NL Sounds; No Murmurs; No JVD, RRR Abdominal: NL Sounds; No Tenderness; No Distention Lymphatic: No Cervical Adenopathy Extremities: No Edema Skin: No Rash or Ulcers Neurological: Alert and Oriented x 3, NL Sensation, NL Muscle Strength and Tone , - - Face symmetrical. Lines/Tubes/Other Access: Clean, Dry and Intact Peripheral IV Nutrition: Taking PO's Result Diagrams: 05/15/18 05:45 05/15/18 05:45 Assess/Plan/Problems-Billing Assessment: 68 year old male with PMH ischemic stroke in December who presented to the ED with change in gait and speech. MRI showed new ischemia in L temporal region. Neuro following - Patient Problems (1) Ischemic cerebrovascular accident (CVA) Current Visit: No Status: Acute Code(s): I63.9 - CEREBRAL INFARCTION, UNSPECIFIED SNOMED Code(s): 277393573 Comment: - MRI with new medial left temporal lobe lacular infarct - Continue aspirin, plavix, lipitor. Pt follows with Dr. Gutierrez since last CVA in December (R posterior pollack radiata CVA), so will check in with him about duration of therapy and follow up - BEBE today w/o PFO or thrombus. CTA head/neck done in showed no significant stenosis. - PT recommends outpatient PT - Consider outpatient event monitoring. (2) Dyslipidemia Current Visit: No Status: Acute Code(s): E78.5 - HYPERLIPIDEMIA, UNSPECIFIED SNOMED Code(s): 177376977 Comment: - Continue lipitor (3) HTN (hypertension) Current Visit: No Status: Acute Code(s): I10 - ESSENTIAL (PRIMARY) HYPERTENSION SNOMED Code(s): 66304035 Comment: - Normotensive on Norvasc (4) DVT prophylaxis Current Visit: No Status: Acute Code(s): RTV6267 - SNOMED Code(s): 472329951 Comment: - Continue HSQ (5) Full code status Current Visit: Yes Status: Acute Code(s): Z78.9 - OTHER SPECIFIED HEALTH STATUS SNOMED Code(s): 182229597 Status and Disposition: Likely discharge today
[2018-05-16 17:46] VITALS: BP 135/66
--- NOTE | 2018-05-17 04:53 | DS ---
AMENDED REPORT NOW INCLUDES DESIGNATED COSIGNER CC: Dr. Celina Marie; Dr. Gutierrez * DISCHARGE SUMMARY: DATE OF ADMISSION: 05/14/18 DATE OF DISCHARGE: 05/16/18 PROVIDER: Erica Thomas NP ATTENDING PHYSICIAN: Dr. Melia Wheeler * (dictated by Erica Thomas NP) PRIMARY CARE PROVIDER: Dr. Celina Marie. NEUROLOGIST: Dr. Gutierrez. PRIMARY DIAGNOSIS: Ischemic cerebrovascular accident. SECONDARY DIAGNOSES: 1. Dyslipidemia. 2. Hypertension. DISCHARGE MEDICATIONS: 1. Norvasc 10 mg p.o. daily. 2. Multivitamin mineral tab 1 tab p.o. daily. 3. Finasteride 5 mg p.o. daily. 4. Aspirin 81 mg p.o. daily. 5. Omeprazole 20 mg p.o. daily. 6. Atorvastatin 80 mg p.o. daily. 7. Plavix 75 mg p.o. daily. The patient is instructed to take both aspirin and Plavix daily for 30 days, after which he should discontinue the aspirin but continue taking the Plavix. STUDIES WHILE IN THE HOSPITAL: BEBE: Left ventricular chamber size is normal, moderate concentric LV hypertrophy is observed. Estimated EF is 60% to 65%. Left atrium is moderately dilated. No thrombus is visualized within the left atrium. There is no thrombus visualized in the left atrial appendage. The right atrium is mildly dilated. A patent foramen ovale is not demonstrated by color Doppler. There is evidence of an atrial septal aneurysm. Possible very faint bubbles crossing noted. There is moderate aortic regurgitation. There is trace mitral regurgitation. There is trace tricuspid regurgitation. Brain MRI: Small focal area of restriction of diffusion in the medial left temporal lobe consistent with lacunar infarct. The cerebellum and brainstem demonstrates no evidence of acute stroke. HOSPITAL COURSE: Mr. Aquino is a 68-year-old male with a past medical history of CVA, hypertension, hyperlipidemia, and GERD, who presented to the ED after having an unsteady gait, weakness, and dysarthria. Of note, the patient did have a stroke in December of this year. His previous stroke involved the right posterior frontal pollack radiata. The patient did have an extensive workup in December following his initial stroke, including a CTA of the neck and head, which showed no stenosis. In the ED, the patient did not have any facial droop or focal weakness. He underwent an MRI, which showed a new area of small lacunar infarct in the left temporal region. He was evaluated by Dr. Santos in the ED and Plavix was added to his medication regimen along with the aspirin he was already on. His LDL was 40 during this hospitalization and he will be continued on his high-dose statin. He was admitted to the hospitalist service for close monitoring on telemetry. He did undergo a BEBE, which showed no PFO and no thrombus visualized within the left atrium. He did have mild LV hypertrophy and a preserved EF of 60% to 65%. There were no arrhythmias noted on his telemetry during his stay. Considering this workup, this new stroke is likely due to small vessel disease, although cardioembolic cannot be ruled out entirely. Consider outpatient cardiac monitoring. The patient was evaluated by Physical Therapy, who felt he would benefit from outpatient physical therapy. This new stroke is likely due to small vessel disease, although cardioembolic cannot be ruled out. However, there were no arrhythmias noted on his telemetry during his stay.On the day of discharge, the patient reports feeling back to his baseline. He feels that his gait is improved as well as his speech and both are back to his baseline. I discussed his case with Dr. Gutierrez, who is Mr. Aquino's outpatient neurologist, and he will be discharged on both aspirin and Plavix for 30 days after which he will stop the aspirin and only take the Plavix. DISPOSITION: The patient is stable for discharge to home. DIET: The patient should follow a heart-healthy diet. ACTIVITY: Activity as tolerated. FOLLOWUP: The patient is instructed to follow up with his primary care physician in 4 to 7 days, at which time he should discuss outpatient physical therapy. The patient is also instructed to follow up with Dr. Gutierrez in 4 weeks. TIME SPENT: Time spent on this discharge was 35 minutes. ERICA THOMAS, DONALDO [id number]/[facility] #: [id number] VISH
== END 2018-05-16 16:30 | disposition home or self-care (01) | DRG 65 ==
LOC: ED 10:53 → OBSVTOIN 15:07 → MEDTELE 15:07
PROVIDERS: ADMIT Internal Medicine; ATTEND Internal Medicine
PROC: B246ZZ4 Ultrasonography of Right and Left Heart, Transesophageal (ICD-10-PCS; principal; 2018-05-15 11:30)
DX: I63.9 Cerebral infarction, unspecified (principal); G95.0 Syringomyelia and syringobulbia; I35.1 Nonrheumatic aortic (valve) insufficiency; I10 Essential (primary) hypertension; K21.9 Gastro-esophageal reflux disease without esophagitis; Z79.82 Long term (current) use of aspirin; Z79.899 Other long term (current) drug therapy; Z91.048 Other nonmedicinal substance allergy status; Z82.3 Family history of stroke; Z82.49 Family history of ischemic heart disease and other diseases of the circulatory system; Z87.891 Personal history of nicotine dependence
CPT/HCPCS: 36415; 70551; 80048; 80053; 80061; 81003; 83036; 85025; 85610; 85730; 93005; 93312; 93325; 99156; 99284; A9270-GY; G8978-GP-CI; G8979-GP-CI; G8980-GP-CI; G8987-GO-CH; G8988-GO-CH; G8989-GO-CH; J1644; J2250; J2310; J3010

== ENCOUNTER 2019-03-12 08:28 | Day surgery (SDC) | payer MEDICARE, BC ==
[~2019-03-12 08:28] MED LIST changes: +Buffered Lidocaine 1% SYRIN* 1 ML/SYRINGE INTRADERM ONE; -Buffered Lidocaine 1% SYRIN* 3 ML/SYR SYRINGE INTRADERM ONE; -Bupivacaine 0.5% W/EPI SDV* 30 ML VIAL ONE; -Dexamethasone IV* 4 MG/ML 1 ML (4 MG) ONE; -Flumazenil* 0.1 MG/ML 5 ML MDV ONE; -Glycopyrrolate IV* 0.2 MG/ML 1 ML VIAL ONE; -HYDROcodone/ACETAMIN 5-325 MG* 1 TAB PO PRN; +Lactated Ringers 1000 ML Bag* 1,000 ML IV SCH; -Lidocaine 1% INJ* 10 MG/ML 30 ML SDV ONE; -Midazolam* 1 MG/ML 5 ML VIAL (5 MG) ONE; -Neostigmine Methylsulfate* 2 MG/2 ML SYRINGE ONE; -Ondansetron INJ* 2 MG/ML VIAL IV PRN; -Phenylephrine IV* 40 MCG/ML 10 ML SYRINGE ONE; -Propofol* 10 MG/ML 20 ML BTL IV PUSH ONE; -ceFAZolin 2 GM PREMIX(*) 2 GM/50 ML BAG IVPB ONE; -fentaNYL* 50 MCG/ML 2 ML VIAL (100 MCG VIAL) ONE; -oxyCODONE TAB* 5 MG TAB PO PRN
[2019-03-12] MEDS ORDERED: Midazolam* 1 MG/ML 2 ML VIAL (2 MG) ONE (09:13)
[2019-03-12] MEDS ORDERED: fentaNYL* 50 MCG/ML 2 ML VIAL (100 MCG VIAL) ONE (09:13)
[2019-03-12] MEDS ORDERED: Lidocaine 1% MPF* 2 ML VIAL ONE (09:32)
[2019-03-12] MEDS ORDERED: Betamethasone INJ* 6 MG/ML 5 ML VIAL (30 MG) ONE (09:33)
[2019-03-12] MEDS ORDERED: Bupivacaine 0.25% SDV* 30 ML ONE (09:35)
[2019-03-12] MEDS ORDERED: Naloxone* 0.4 MG/ML 1 ML VIAL IV PRN (09:38)
[2019-03-12] MEDS ORDERED: Remifentanil* 2 MG VIAL ONE (09:39)
[2019-03-12] MEDS ORDERED: Propofol* 10 MG/ML 20 ML BTL ONE ×2 (09:41→10:19)
[2019-03-12] MEDS ORDERED: Lidocaine 2% PF * 5 ML VIAL ONE (09:41)
[2019-03-12] MEDS ORDERED: ceFAZolin 2 GM PREMIX in ORs 2 GM/50 ML BAG ONE (10:03)
[2019-03-12 11:43] VITALS: BP 123/63
--- NOTE | 2019-03-12 13:35 | OP ---
DATE OF OPERATION: 03/12/19 - [facility] DATE OF : 46 SURGEON: Beny Hernandez MD. CLOTH WEIGHER: ILYA Uribe. ANESTHESIOLOGIST: Dr. Novak. ANESTHESIA: Local MAC. PRE-OP DIAGNOSES: 1. Left trigger thumb. 2. Left volar wrist ganglion cyst. 3. Right trigger thumb. POST-OP DIAGNOSES: 1. Left trigger thumb. 2. Left volar wrist ganglion cyst. 3. Right trigger thumb. OPERATIVE PROCEDURE: 1. Left trigger thumb release of A1 adrian. 2. Left wrist excision of volar wrist ganglion cyst. 3. Right trigger thumb steroid injection. INDICATIONS: Mr. Aquino has the trigger thumbs that have occurred after 1 injection. He also has a cyst. We had talked about this treatment options. He had wanted to proceed with excision and surgery. He understands there is a risk associated with this. ESTIMATED BLOOD LOSS: 2 mL. COMPLICATIONS: None. FINDINGS: See above and below. DESCRIPTION OF PROCEDURE: Mr. Aquino was seen in the preoperative holding area. The correct site, side, and procedure were identified. We came back to the operating room. We had a time-out. I then cleaned the skin and injected the right thumb A1 adrian with 1 mL of 1% lidocaine and 6 mg of betamethasone. He tolerated that well. A Band-Aid was applied. The left arm was then prepped and draped in the usual fashion after it was numbed up with Marcaine and a time- out was performed. I first made a 1 cm incision in the MP joint flexion crease over the left thumb. Dissection was carried down. Ragnell retractors were placed. A very thickened tendon sheath was released. Once I completed the release of the A1 adrian, the release was completed distally and proximally with a tenotomy scissors, there was no more triggering. The wound was irrigated out and closed with 4-0 nylon suture. I then made a lazy S type incision over the volar wrist ganglion cyst. Dissection was carried down. The cyst was from the radial artery, which was just draped over the ulnar aspect of the cyst. Once the radial artery was dissected out of the way, I tracked the cyst right down to the volar wrist joint where it emanating. This was amputated at the wrist joint. It had a rather large stalk. The cyst was handed off as a specimen. I then cauterized where the cyst was coming off the joint to try to prevent cyst recurrence. At this point, everything was looking really good. The wound was irrigated out. Skin was closed with 4-0 nylon. The wounds were dressed and a cock-up wrist splint was applied. Plaster wrist splint was applied. He was taken to the recovery room in stable condition. [id number]/[facility] #: [id number] [id number]
== END 2019-03-12 11:30 | disposition home or self-care (01) ==
LOC: OREAST 08:28
PROVIDERS: ATTEND Orthopaedic Surgery Hand Surgery
DX: M65.312 Trigger thumb, left thumb (principal); M67.432 Ganglion, left wrist; M65.311 Trigger thumb, right thumb; I10 Essential (primary) hypertension; Z87.891 Personal history of nicotine dependence; K21.9 Gastro-esophageal reflux disease without esophagitis; Z79.01 Long term (current) use of anticoagulants; Z86.73 Personal history of transient ischemic attack (TIA), and cerebral infarction without residual deficits; J30.89 Other allergic rhinitis
CPT/HCPCS: 88304; J0690; J0702; J2250; J2704; J3010; J3490